=== PATIENT | female | born 1950 | race Caucasian/White ===

== ENCOUNTER 2017-11-08 07:38 | Emergency (ER) | payer MEDICARE, OTHER ==
[~2017-11-08] VITALS: Ht 154.9 cm; Wt 50.0 kg
[2017-11-08] MEDS ORDERED: aspirin 81mg tab.chew PO ONE (07:55)
[2017-11-08 07:56] LABS: BASOPHILS # (AUTO) 0.1 X10'3 (0-0.2); BASOPHILS % (AUTO) 0.3 % (0-1); EOSINOPHILS # (AUTO) 0.3 X10'3 (0-0.9); EOSINOPHILS % (AUTO) 1.4 % (0-6); HEMATOCRIT 46.5 % (35.0-45.0); HEMOGLOBIN 15.6 g/dl (12.0-16.0); LYMPHOCYTES # (AUTO) 1.2 X10'3 (1.1-4.8); LYMPHOCYTES % (AUTO) 5.7 % (21-51); MEAN CORPUSCULAR HEMOGLOBIN 29.7 PG (27.0-31.0); MEAN CORPUSCULAR HGB CONC 33.5 % (33.0-36.5); MEAN CORPUSCULAR VOLUME 88.8 FL (78-98); MONOCYTES # (AUTO) 0.8 X10'3 (0-0.9); MONOCYTES % (AUTO) 3.8 % (2-12); NEUTROPHILS # (AUTO) 18.2 X10'3 (1.8-7.7); NEUTROPHILS % (AUTO) 88.8 % (42-75); PLATELET COUNT 301 X10'3 (140-440); RED BLOOD COUNT 5.23 X10'6 (4.20-5.60); RED CELL DISTRIBUTION WIDTH 13.8 % (11.5-14.5); WHITE BLOOD COUNT 20.5 X10'3 (4.5-11.0)
[2017-11-08 08:20] LABS: CREATINE KINASE 44 U/L (26-192); LIPASE 100 U/L (73-393); MAGNESIUM 1.8 MG/DL (1.5-2.4)
[2017-11-08 08:50] LABS: GLUCOSE 170 MG/DL (70-104); POTASSIUM 4.4 MMOL/L (3.5-5.1); SODIUM 139 MMOL/L (135-145)
[2017-11-08 08:51] LABS: ALANINE AMINOTRANSFERASE 31 U/L (12-78); ALBUMIN 3.9 G/DL (3.4-5.0); ALBUMIN/GLOBULIN RATIO 0.8 (1.1-1.5); ALKALINE PHOSPHATASE 146 IU/L (46-116); ANION GAP 12 (8-16); ASPARTATE AMINO TRANSFERASE 25 U/L (10-37); BILIRUBIN,TOTAL 1.5 MG/DL (0.1-1.0); BLOOD UREA NITROGEN 23 MG/DL (7-18); CALCIUM 10.4 MG/DL (8.5-10.1); CHLORIDE 102 MMOL/L (99-107); CREATININE 1.35 MG/DL (0.40-0.90); TOTAL CARBON DIOXIDE 24.7 MMOL/L (24-32); TOTAL PROTEIN 8.9 G/DL (6.4-8.2); eGFR 39 ML/MIN
[2017-11-08] MEDS ORDERED: normal saline 1000ML IV soln IVB ONE ×2 (08:55→09:05)
[2017-11-08] MEDS ORDERED: guaiFENesin ER 600mg tablet PO ONE (09:05)
[2017-11-08] MEDS ORDERED: sodium bicarbonate (0.9mEq/ml) 44.6 mEq/50ml syringe IV ONE (09:10)
[2017-11-08] MEDS ORDERED: sodium bicarbonate (8.4%) 1 mEq/ml syringe IV ONE (09:30)
[2017-11-08 09:44] LABS: PROTHROMBIN TIME 10.2 SECONDS (9.0-12.0)
[2017-11-08 10:08] LABS: PARTIAL THROMBOPLASTIN TIME 29 SECONDS (22-32)
[2017-11-08] MEDS ORDERED: iohexol 350MG/ML 100ml bottle IV ONE (10:42)
[2017-11-08] MEDS ORDERED: morphine 4 MG/ML inj SYRINge IV ONE (13:15)
[2017-11-08] MEDS ORDERED: LIDOcaine Viscous 15ml cup PO ONE (13:25)
[2017-11-08] MEDS ORDERED: mag hydrox/Alum hydrox/simeth 30ml oral suspension PO ONE (13:25)
[2017-11-08] MEDS ORDERED: morphine 2 MG/ML inj. syringe IV ONE (14:00)
[2017-11-08] MEDS ORDERED: ketorolac tromethamine 15mg/ml inj. IV ONE (14:00)
[2017-11-08 14:12] LABS: CLARITY,URINE CLEAR (Clear); COLOR,URINE YELLOW (Yellow); GLUCOSE, URINE NEGATIVE (Neg); KETONES,URINE 15 mg/dl (Neg); LEUKOCYTE ESTERASE ,URINE NEGATIVE (Neg); NITRITES, URINE NEGATIVE (Neg); OCCULT BLOOD,URINE NEGATIVE (Neg); PH,URINE 7.5 (4.8-8.0); PROTEIN,URINE NEGATIVE (Neg); UA COLLECTION TYPE CLN CATCH MIDSTREAM; UROBILINOGEN,URINE 0.2 E.U/dL (0.2-1.0)
[2017-11-08] MEDS ORDERED: ACET1TAB25 PO (14:46)
[2017-11-08] MEDS ORDERED: NAPR-56 PO (14:46)
[2017-11-08 15:00] VITALS: BP 83/61
== END 2017-11-08 15:01 | disposition home or self-care (01) ==
LOC: ER 07:38
DX: J90 Pleural effusion, not elsewhere classified (principal); D72.829 Elevated white blood cell count, unspecified; Z85.01 Personal history of malignant neoplasm of esophagus; Z79.899 Other long term (current) drug therapy
CPT/HCPCS: 36415; 71045; 71275; 80053; 81003; 82550; 83690; 83735; 83874; 83880; 84484; 85025; 85610; 85730; 93005; 96361; 96374; 96375; 99285; J1885; J7030; Q9967

== ENCOUNTER 2017-11-22 15:36 | Inpatient (IN) | payer MEDICARE, OTHER ==
[~2017-11-22] VITALS: Ht 5116.1 cm; Wt 84.5 kg
[~2017-11-22 15:36] MED LIST: NAPR-56 PO
[2017-11-22 16:24] LABS: BASOPHILS % (AUTO) 0.3 % (0-1); EOSINOPHILS # (AUTO) 0.2 X10'3 (0-0.9); EOSINOPHILS % (AUTO) 1.2 % (0-6); HEMATOCRIT 41.2 % (35.0-45.0); HEMOGLOBIN 13.7 g/dl (12.0-16.0); MEAN CORPUSCULAR HEMOGLOBIN 29.1 PG (27.0-31.0); MEAN CORPUSCULAR HGB CONC 33.2 % (33.0-36.5); MEAN CORPUSCULAR VOLUME 87.6 FL (78-98); MEAN PLATELET VOLUME 8.5 FL (7.4-10.4); MONOCYTES # (AUTO) 0.8 X10'3 (0-0.9); MONOCYTES % (AUTO) 4.9 % (2-12); NEUTROPHILS # (AUTO) 15.2 X10'3 (1.8-7.7); NEUTROPHILS % (AUTO) 87.6 % (42-75); PLATELET COUNT 401 X10'3 (140-440); RED CELL DISTRIBUTION WIDTH 14.2 % (11.5-14.5); WHITE BLOOD COUNT 17.4 X10'3 (4.5-11.0)
[2017-11-22] MEDS ORDERED: adenosine 3mg/ml 2ml vial IV ONE (16:35)
[2017-11-22 16:45] LABS: ALANINE AMINOTRANSFERASE 36 U/L (12-78); ALBUMIN 3.2 G/DL (3.4-5.0); ALBUMIN/GLOBULIN RATIO 0.7 (1.1-1.5); ALKALINE PHOSPHATASE 127 IU/L (46-116); ANION GAP 15 (8-16); ASPARTATE AMINO TRANSFERASE 25 U/L (10-37); BILIRUBIN,TOTAL 0.7 MG/DL (0.1-1.0); BLOOD UREA NITROGEN 27 MG/DL (7-18); BUN/CREATININE RATIO 19.4 (6.6-38.0); CALCIUM 9.4 MG/DL (8.5-10.1); CHLORIDE 103 MMOL/L (99-107); CREATININE 1.39 MG/DL (0.40-0.90); GLUCOSE 154 MG/DL (70-104); POTASSIUM 4.3 MMOL/L (3.5-5.1); SODIUM 140 MMOL/L (135-145); TOTAL CARBON DIOXIDE 21.6 MMOL/L (24-32); TOTAL PROTEIN 7.8 G/DL (6.4-8.2); eGFR 38 ML/MIN
[2017-11-22 16:46] LABS: PARTIAL THROMBOPLASTIN TIME 28 SECONDS (22-32); PROTHROMBIN TIME 10.5 SECONDS (9.0-12.0)
[2017-11-22] MEDS ORDERED: diltiazem-D5W 125mg/125ml 125 ML IV ONE (16:47)
[2017-11-22] MEDS ORDERED: verapamil 2.5 mg/ml inj IV ONE (16:50)
[2017-11-22] MEDS ORDERED: metoprolol tartrate 1mg/ml inj IV ONE (17:40)
[2017-11-22] MEDS ORDERED: normal saline 1000ML IV soln IVB ONE (17:40)
[2017-11-22] MEDS ORDERED: mag hydrox/Alum hydrox/simeth 30ml oral suspension PO PRN (18:30)
[2017-11-22] MEDS ORDERED: acetaminophen 325mg tablet PO PRN (18:30)
[2017-11-22] MEDS ORDERED: magnesium hydroxide 30ml (MOM) UD suspension PO PRN (18:30)
[2017-11-22] MEDS ORDERED: ondansetron/PF 4mg/2ml inj IV PRN (18:30)
[2017-11-22] MEDS ORDERED: digoxin 250mcg/ml 2ml ampule IV ONE (18:35)
[2017-11-22 19:16] LABS: HEMOGLOBIN A1C 5.8 % (4.5-6.2)
[2017-11-22] MEDS: normal saline 1000ml 1,000 ML IV SCH (20:29)
[2017-11-22] MEDS: heparin, porcine 5000 units/ml vial SQ SCH (20:30)
[2017-11-23 04:23] LABS: BASOPHILS % (AUTO) 0.2 % (0-1); EOSINOPHILS # (AUTO) 0.1 X10'3 (0-0.9); EOSINOPHILS % (AUTO) 0.9 % (0-6); HEMATOCRIT 35.5 % (35.0-45.0); HEMOGLOBIN 11.6 g/dl (12.0-16.0); LYMPHOCYTES % (AUTO) 8.7 % (21-51); MEAN CORPUSCULAR HEMOGLOBIN 28.7 PG (27.0-31.0); MEAN CORPUSCULAR HGB CONC 32.8 % (33.0-36.5); MEAN CORPUSCULAR VOLUME 87.6 FL (78-98); MEAN PLATELET VOLUME 8.1 FL (7.4-10.4); MONOCYTES # (AUTO) 0.7 X10'3 (0-0.9); MONOCYTES % (AUTO) 6.3 % (2-12); NEUTROPHILS # (AUTO) 9.4 X10'3 (1.8-7.7); NEUTROPHILS % (AUTO) 83.9 % (42-75); PLATELET COUNT 286 X10'3 (140-440); RED BLOOD COUNT 4.06 X10'6 (4.20-5.60); RED CELL DISTRIBUTION WIDTH 14.4 % (11.5-14.5); WHITE BLOOD COUNT 11.2 X10'3 (4.5-11.0)
[2017-11-23 04:41] LABS: ALANINE AMINOTRANSFERASE 42 U/L (12-78); ALBUMIN 2.5 G/DL (3.4-5.0); ALBUMIN/GLOBULIN RATIO 0.7 (1.1-1.5); ALKALINE PHOSPHATASE 126 IU/L (46-116); ANION GAP 12 (8-16); ASPARTATE AMINO TRANSFERASE 35 U/L (10-37); BILIRUBIN,TOTAL 0.7 MG/DL (0.1-1.0); BLOOD UREA NITROGEN 24 MG/DL (7-18); BUN/CREATININE RATIO 21.2 (6.6-38.0); CALCIUM 8.5 MG/DL (8.5-10.1); CHLORIDE 109 MMOL/L (99-107); CREATININE 1.13 MG/DL (0.40-0.90); GLUCOSE 105 MG/DL (70-104); POTASSIUM 4.1 MMOL/L (3.5-5.1); SODIUM 144 MMOL/L (135-145); TOTAL CARBON DIOXIDE 22.7 MMOL/L (24-32); TOTAL PROTEIN 6.3 G/DL (6.4-8.2); eGFR 48 ML/MIN
[2017-11-23 04:49] LABS: GIANT PLATELET FEW; LARGE PLATELETS FEW; PLATELET ESTIMATE NORMAL
[2017-11-23] MEDS: normal saline 1000ml 1,000 ML IV SCH ×2 (05:04→18:07)
[2017-11-23] MEDS: heparin, porcine 5000 units/ml vial SQ SCH ×2 (08:54→21:25)
[2017-11-23] MEDS ORDERED: OMEP-50 (10:36)
[2017-11-23] MEDS ORDERED: LOVA40TA2 (10:36)
[2017-11-23] MEDS ORDERED: INFLUENZA VACCINE IMVAC ONE (10:45)
[2017-11-23] MEDS ORDERED: albuterol 2.5 MG/3 ML nebule NEB PRN (11:55)
[2017-11-23 12:46] LABS: ABG BASE EXCESS -2.2 mmol/L (-2.0-3.0); ABG HCO3 19.7 mmol/L (22.0-26.0); ABG OXYGEN SATURATION 88.3 % (95-98); ABG PCO2 (T) 26.4 mmHg (32.0-45.0); ABG PH (T) 7.491 (7.350-7.450); ABG PO2 (T) 53.1 mmHg (83-108); ALLEN'S TEST Positive; FCOHb 0.9 % (0.5-1.5); FMetHb 0.3 % (0.3-1.12); FO2Hb 87.2 % (94-100); TOTAL HEMOGLOBIN 12.7 G/dl (12.0-16.0)
[2017-11-23] MEDS ORDERED: FLU VACC QS2017-18 36MOS UP/PF 60 MCG/0.5 ML SYRINGE IMVAC ONE (12:55)
[2017-11-23] MEDS: carVEDilol 3.125mg tablet PO SCH ×2 (13:20→20:00)
[2017-11-23] MEDS ORDERED: methylPREDNISolone sod succ 125mg/2ml vial IV ONE (18:05)
[2017-11-24] VITALS (7 sets, daily range): BP systolic 97–126; BP diastolic 53–72
[2017-11-24] MEDS: normal saline 1000ml 1,000 ML IV SCH ×3 (03:44→23:30)
[2017-11-24 06:40] LABS: BASOPHILS % (AUTO) 0 % (0-1); EOSINOPHILS % (AUTO) 0 % (0-6); HEMATOCRIT 40.5 % (35.0-45.0); HEMOGLOBIN 13.6 g/dl (12.0-16.0); LYMPHOCYTES # (AUTO) 0.6 X10'3 (1.1-4.8); LYMPHOCYTES % (AUTO) 4.6 % (21-51); MEAN CORPUSCULAR HEMOGLOBIN 29.7 PG (27.0-31.0); MEAN CORPUSCULAR HGB CONC 33.6 % (33.0-36.5); MEAN CORPUSCULAR VOLUME 88.5 FL (78-98); MEAN PLATELET VOLUME 8.6 FL (7.4-10.4); MONOCYTES # (AUTO) 0.2 X10'3 (0-0.9); MONOCYTES % (AUTO) 1.7 % (2-12); NEUTROPHILS % (AUTO) 93.7 % (42-75); PLATELET COUNT 334 X10'3 (140-440); RED BLOOD COUNT 4.57 X10'6 (4.20-5.60); RED CELL DISTRIBUTION WIDTH 14.4 % (11.5-14.5); WHITE BLOOD COUNT 12.8 X10'3 (4.5-11.0)
[2017-11-24 07:03] LABS: ALANINE AMINOTRANSFERASE 46 U/L (12-78); ALBUMIN 2.9 G/DL (3.4-5.0); ALBUMIN/GLOBULIN RATIO 0.6 (1.1-1.5); ALKALINE PHOSPHATASE 136 IU/L (46-116); ANION GAP 14 (8-16); ASPARTATE AMINO TRANSFERASE 32 U/L (10-37); BILIRUBIN,TOTAL 0.5 MG/DL (0.1-1.0); BLOOD UREA NITROGEN 19 MG/DL (7-18); BUN/CREATININE RATIO 17.1 (6.6-38.0); CALCIUM 9.1 MG/DL (8.5-10.1); CHLORIDE 107 MMOL/L (99-107); CREATININE 1.11 MG/DL (0.40-0.90); GLUCOSE 158 MG/DL (70-104); POTASSIUM 4.4 MMOL/L (3.5-5.1); SODIUM 141 MMOL/L (135-145); TOTAL CARBON DIOXIDE 20.3 MMOL/L (24-32); TOTAL PROTEIN 7.8 G/DL (6.4-8.2); eGFR 49 ML/MIN
[2017-11-24] MEDS: apixaban 5mg tablet PO SCH ×2 (07:34→19:38)
[2017-11-24] MEDS: carVEDilol 3.125mg tablet PO SCH ×2 (07:34→19:38)
[2017-11-24] MEDS: methylPREDNISolone sod succ 125mg/2ml vial IV SCH (07:35)
[2017-11-24] MEDS ORDERED: levoFLOXACIN-Levaquin 750MG/D5 150 ML IV STA (19:03)
[2017-11-24] MEDS: albuterol 2.5 MG/3 ML nebule NEB PRN (22:22)
[2017-11-24] MEDS: LORazepam 2 mg/ml vial IV PRN (22:45)
[2017-11-24 23:21] LABS: ABG BASE EXCESS -3.4 mmol/L (-2.0-3.0); ABG HCO3 19.6 mmol/L (22.0-26.0); ABG OXYGEN SATURATION 84.6 % (95-98); ABG PCO2 (T) 29.2 mmHg (32.0-45.0); ABG PH (T) 7.444 (7.350-7.450); ABG PO2 (T) 49.9 mmHg (83-108); ALLEN'S TEST Positive; FCOHb 0.6 % (0.5-1.5); FLOW 15 L/min; FMetHb 0.3 % (0.3-1.12); FO2Hb 83.8 % (94-100); PATIENT TEMPERATURE 36.8; RESPIRATORY RATE (OBSERVED) 20 b/min; TOTAL HEMOGLOBIN 12.8 G/dl (12.0-16.0)
[2017-11-25] VITALS (8 sets, daily range): BP systolic 82–142; BP diastolic 48–107
[2017-11-25] MEDS: normal saline 1000ml 1,000 ML IV SCH (01:52)
[2017-11-25] MEDS: albuterol 2.5 MG/3 ML nebule NEB PRN (05:20)
[2017-11-25 06:30] LABS: BASOPHILS % (AUTO) 0.1 % (0-1); EOSINOPHILS % (AUTO) 0 % (0-6); HEMATOCRIT 42.8 % (35.0-45.0); HEMOGLOBIN 14.3 g/dl (12.0-16.0); LYMPHOCYTES # (AUTO) 0.8 X10'3 (1.1-4.8); LYMPHOCYTES % (AUTO) 3.2 % (21-51); MEAN CORPUSCULAR HEMOGLOBIN 29.3 PG (27.0-31.0); MEAN CORPUSCULAR HGB CONC 33.4 % (33.0-36.5); MEAN CORPUSCULAR VOLUME 87.9 FL (78-98); MEAN PLATELET VOLUME 8.6 FL (7.4-10.4); MONOCYTES # (AUTO) 0.8 X10'3 (0-0.9); MONOCYTES % (AUTO) 3.4 % (2-12); NEUTROPHILS # (AUTO) 22.7 X10'3 (1.8-7.7); NEUTROPHILS % (AUTO) 93.3 % (42-75); PLATELET COUNT 418 X10'3 (140-440); RED BLOOD COUNT 4.86 X10'6 (4.20-5.60); RED CELL DISTRIBUTION WIDTH 14.3 % (11.5-14.5); WHITE BLOOD COUNT 24.4 X10'3 (4.5-11.0)
[2017-11-25 06:46] LABS: ALANINE AMINOTRANSFERASE 35 U/L (12-78); ALBUMIN 2.9 G/DL (3.4-5.0); ALBUMIN/GLOBULIN RATIO 0.6 (1.1-1.5); ALKALINE PHOSPHATASE 129 IU/L (46-116); ANION GAP 11 (8-16); ASPARTATE AMINO TRANSFERASE 22 U/L (10-37); BILIRUBIN,TOTAL 0.5 MG/DL (0.1-1.0); BLOOD UREA NITROGEN 19 MG/DL (7-18); BUN/CREATININE RATIO 18.1 (6.6-38.0); CALCIUM 9.1 MG/DL (8.5-10.1); CHLORIDE 107 MMOL/L (99-107); CREATININE 1.05 MG/DL (0.40-0.90); GLUCOSE 119 MG/DL (70-104); POTASSIUM 4.5 MMOL/L (3.5-5.1); SODIUM 141 MMOL/L (135-145); TOTAL CARBON DIOXIDE 22.8 MMOL/L (24-32); eGFR 52 ML/MIN
[2017-11-25] MEDS: methylPREDNISolone sod succ 125mg/2ml vial IV SCH ×3 (07:15→20:04)
[2017-11-25] MEDS: LORazepam 2 mg/ml vial IV PRN (07:15)
[2017-11-25] MEDS: apixaban 5mg tablet PO SCH ×2 (07:20→20:03)
[2017-11-25] MEDS: carVEDilol 3.125mg tablet PO SCH ×2 (07:20→20:00)
[2017-11-25] MEDS ORDERED: ipratropium/albuterol 3ml nebule NEB PRN (08:15)
[2017-11-25 08:21] LABS: ABG BASE EXCESS -3.5 mmol/L (-2.0-3.0); ABG HCO3 19.5 mmol/L (22.0-26.0); ABG OXYGEN SATURATION 87.9 % (95-98); ABG PCO2 (T) 29.7 mmHg (32.0-45.0); ABG PH (T) 7.436 (7.350-7.450); ABG PO2 (T) 55.3 mmHg (83-108); ALLEN'S TEST Positive; FCOHb 0.1 % (0.5-1.5); FLOW 40 L/min; FMetHb 0.3 % (0.3-1.12); FO2Hb 87.5 % (94-100)
[2017-11-25] MEDS ORDERED: furosemide 40mg/4ml inj IV ONE (09:30)
[2017-11-25 12:22] LABS: GLUCOSE,BODY FLUID 130 MG/DL
[2017-11-25] MEDS: furosemide 40mg/4ml inj IV SCH (16:00)
[2017-11-25] MEDS: lactobacillus rhamnosus 10,000 MMU CELLS/CAPSULE PO SCH (20:03)
[2017-11-26] VITALS (21 sets, daily range): BP systolic 84–116; BP diastolic 47–64
[2017-11-26] MEDS: methylPREDNISolone sod succ 125mg/2ml vial IV SCH ×4 (04:10→20:14)
[2017-11-26 05:26] LABS: BASOPHILS % (AUTO) 0 % (0-1); EOSINOPHILS # (AUTO) 0.1 X10'3 (0-0.9); EOSINOPHILS % (AUTO) 0.8 % (0-6); HEMOGLOBIN 13.2 g/dl (12.0-16.0); LYMPHOCYTES # (AUTO) 0.5 X10'3 (1.1-4.8); LYMPHOCYTES % (AUTO) 2.7 % (21-51); MEAN CORPUSCULAR HEMOGLOBIN 29.4 PG (27.0-31.0); MEAN CORPUSCULAR HGB CONC 33.7 % (33.0-36.5); MEAN CORPUSCULAR VOLUME 87.2 FL (78-98); MEAN PLATELET VOLUME 8.6 FL (7.4-10.4); MONOCYTES # (AUTO) 0.5 X10'3 (0-0.9); MONOCYTES % (AUTO) 2.6 % (2-12); NEUTROPHILS # (AUTO) 16.3 X10'3 (1.8-7.7); NEUTROPHILS % (AUTO) 93.9 % (42-75); PLATELET COUNT 372 X10'3 (140-440); RED BLOOD COUNT 4.48 X10'6 (4.20-5.60); RED CELL DISTRIBUTION WIDTH 14.6 % (11.5-14.5); WHITE BLOOD COUNT 17.4 X10'3 (4.5-11.0)
[2017-11-26 05:58] LABS: ALANINE AMINOTRANSFERASE 28 U/L (12-78); ALBUMIN 2.5 G/DL (3.4-5.0); ALBUMIN/GLOBULIN RATIO 0.6 (1.1-1.5); ALKALINE PHOSPHATASE 104 IU/L (46-116); ANION GAP 11 (8-16); ASPARTATE AMINO TRANSFERASE 21 U/L (10-37); BILIRUBIN,TOTAL 0.6 MG/DL (0.1-1.0); BLOOD UREA NITROGEN 31 MG/DL (7-18); BUN/CREATININE RATIO 28.4 (6.6-38.0); CALCIUM 8.9 MG/DL (8.5-10.1); CHLORIDE 104 MMOL/L (99-107); CREATININE 1.09 MG/DL (0.40-0.90); GLUCOSE 160 MG/DL (70-104); PHOSPHORUS 4.5 MG/DL (2.3-4.5); POTASSIUM 3.8 MMOL/L (3.5-5.1); SODIUM 139 MMOL/L (135-145); TOTAL CARBON DIOXIDE 23.9 MMOL/L (24-32); eGFR 50 ML/MIN
[2017-11-26] MEDS: carVEDilol 3.125mg tablet PO SCH ×2 (08:00→19:22)
[2017-11-26] MEDS: lactobacillus rhamnosus 10,000 MMU CELLS/CAPSULE PO SCH ×2 (08:18→20:15)
[2017-11-26] MEDS: apixaban 5mg tablet PO SCH ×2 (08:18→20:15)
[2017-11-26] MEDS: atorvastatin 20mg tablet PO SCH (08:18)
[2017-11-26] MEDS: furosemide 40mg/4ml inj IV SCH ×3 (08:18→16:00)
[2017-11-26] MEDS: levoFLOXACIN-Levaquin 750MG/D5 150 ML IV SCH (08:37)
[2017-11-26] MEDS: benzocaine/menthol oral lozeng 1 EACH BOX MM PRN (16:10)
[2017-11-26] MEDS: diatr meglu/diatrizoate 30ml oral sol.-(3 dose) bottle PO SCH (21:00)
[2017-11-27] VITALS (7 sets, daily range): BP systolic 86–118; BP diastolic 45–65
[2017-11-27] MEDS: methylPREDNISolone sod succ 125mg/2ml vial IV SCH ×4 (03:33→20:33)
[2017-11-27 06:03] LABS: BASOPHILS % (AUTO) 0 % (0-1); EOSINOPHILS % (AUTO) 0 % (0-6); HEMATOCRIT 37.9 % (35.0-45.0); HEMOGLOBIN 12.6 g/dl (12.0-16.0); LYMPHOCYTES # (AUTO) 0.4 X10'3 (1.1-4.8); LYMPHOCYTES % (AUTO) 2.2 % (21-51); MEAN CORPUSCULAR HEMOGLOBIN 29.4 PG (27.0-31.0); MEAN CORPUSCULAR HGB CONC 33.3 % (33.0-36.5); MEAN CORPUSCULAR VOLUME 88.3 FL (78-98); MEAN PLATELET VOLUME 8.5 FL (7.4-10.4); MONOCYTES # (AUTO) 0.5 X10'3 (0-0.9); MONOCYTES % (AUTO) 2.6 % (2-12); NEUTROPHILS % (AUTO) 95.2 % (42-75); PLATELET COUNT 358 X10'3 (140-440); RED BLOOD COUNT 4.29 X10'6 (4.20-5.60); RED CELL DISTRIBUTION WIDTH 14.6 % (11.5-14.5); WHITE BLOOD COUNT 17.9 X10'3 (4.5-11.0)
[2017-11-27 06:24] LABS: ALANINE AMINOTRANSFERASE 32 U/L (12-78); ALBUMIN 2.4 G/DL (3.4-5.0); ALBUMIN/GLOBULIN RATIO 0.5 (1.1-1.5); ALKALINE PHOSPHATASE 99 IU/L (46-116); ANION GAP 11 (8-16); ASPARTATE AMINO TRANSFERASE 27 U/L (10-37); BILIRUBIN,TOTAL 0.8 MG/DL (0.1-1.0); BLOOD UREA NITROGEN 42 MG/DL (7-18); BUN/CREATININE RATIO 37.5 (6.6-38.0); CALCIUM 8.9 MG/DL (8.5-10.1); CHLORIDE 101 MMOL/L (99-107); CREATININE 1.12 MG/DL (0.40-0.90); GLUCOSE 157 MG/DL (70-104); MAGNESIUM 2.5 MG/DL (1.5-2.4); POTASSIUM 3.9 MMOL/L (3.5-5.1); SODIUM 140 MMOL/L (135-145); TOTAL CARBON DIOXIDE 28.4 MMOL/L (24-32); TOTAL PROTEIN 6.8 G/DL (6.4-8.2); eGFR 49 ML/MIN
[2017-11-27] MEDS: diatr meglu/diatrizoate 30ml oral sol.-(3 dose) bottle PO SCH ×2 (07:05→19:41)
[2017-11-27] MEDS: carVEDilol 3.125mg tablet PO SCH ×2 (08:00→19:41)
[2017-11-27] MEDS: furosemide 40mg/4ml inj IV SCH ×2 (08:00)
[2017-11-27] MEDS: atorvastatin 20mg tablet PO SCH (08:09)
[2017-11-27] MEDS: apixaban 5mg tablet PO SCH ×2 (08:09→20:33)
[2017-11-27] MEDS: lactobacillus rhamnosus 10,000 MMU CELLS/CAPSULE PO SCH ×2 (08:10→20:33)
[2017-11-27] MEDS ORDERED: iohexol 300mg/ml 100ml inj. ONE (08:56)
[2017-11-27] MEDS: furosemide 20 MG/2 ML vial IV SCH (15:48)
[2017-11-28] VITALS (7 sets, daily range): BP systolic 82–100; BP diastolic 42–57
[2017-11-28] MEDS: furosemide 20 MG/2 ML vial IV SCH ×3 (00:38→16:12)
[2017-11-28] MEDS: methylPREDNISolone sod succ 125mg/2ml vial IV SCH ×4 (02:59→20:04)
[2017-11-28 05:42] LABS: MAGNESIUM 2.5 MG/DL (1.5-2.4); PHOSPHORUS 4.5 MG/DL (2.3-4.5)
[2017-11-28] MEDS: carVEDilol 3.125mg tablet PO SCH ×2 (08:00→20:00)
[2017-11-28] MEDS: atorvastatin 20mg tablet PO SCH (08:12)
[2017-11-28] MEDS: apixaban 5mg tablet PO SCH ×2 (08:12→20:03)
[2017-11-28] MEDS: lactobacillus rhamnosus 10,000 MMU CELLS/CAPSULE PO SCH ×2 (08:12→20:03)
[2017-11-28] MEDS: levoFLOXACIN-Levaquin 750MG/D5 150 ML IV SCH (09:04)
[2017-11-28] MEDS: guaiFENesin ER 600mg tablet PO SCH (20:03)
[2017-11-29] VITALS (7 sets, daily range): BP systolic 90–104; BP diastolic 47–58
[2017-11-29] MEDS: furosemide 20 MG/2 ML vial IV SCH ×4 (00:31→23:47)
[2017-11-29] MEDS: methylPREDNISolone sod succ 125mg/2ml vial IV SCH ×2 (02:27→09:09)
[2017-11-29 06:19] LABS: MAGNESIUM 2.4 MG/DL (1.5-2.4); PHOSPHORUS 4.2 MG/DL (2.3-4.5)
[2017-11-29] MEDS: atorvastatin 20mg tablet PO SCH (09:10)
[2017-11-29] MEDS: carVEDilol 3.125mg tablet PO SCH ×2 (09:10→20:22)
[2017-11-29] MEDS: lactobacillus rhamnosus 10,000 MMU CELLS/CAPSULE PO SCH ×2 (09:10→20:24)
[2017-11-29] MEDS: guaiFENesin ER 600mg tablet PO SCH ×2 (09:10→20:24)
[2017-11-29] MEDS: apixaban 5mg tablet PO SCH ×2 (09:10→20:22)
[2017-11-29] MEDS: methylPREDNISolone sod succ/PF 40mg inj. IV SCH ×2 (14:01→20:21)
[2017-11-29] MEDS: benzocaine/menthol oral lozeng 1 EACH BOX MM PRN ×2 (15:48→20:24)
[2017-11-30] VITALS (7 sets, daily range): BP systolic 81–98; BP diastolic 48–84
[2017-11-30] MEDS: methylPREDNISolone sod succ/PF 40mg inj. IV SCH ×4 (01:04→20:25)
[2017-11-30 06:04] LABS: MAGNESIUM 2.4 MG/DL (1.5-2.4); PHOSPHORUS 4.3 MG/DL (2.3-4.5)
[2017-11-30] MEDS: levoFLOXACIN-Levaquin 750MG/D5 150 ML IV SCH (08:00)
[2017-11-30] MEDS: carVEDilol 3.125mg tablet PO SCH ×2 (08:00→20:00)
[2017-11-30] MEDS: furosemide 20 MG/2 ML vial IV SCH ×2 (08:00→15:06)
[2017-11-30] MEDS: lactobacillus rhamnosus 10,000 MMU CELLS/CAPSULE PO SCH ×2 (08:26→20:26)
[2017-11-30] MEDS: atorvastatin 20mg tablet PO SCH (08:26)
[2017-11-30] MEDS: guaiFENesin ER 600mg tablet PO SCH ×2 (08:27→20:26)
[2017-11-30] MEDS: apixaban 5mg tablet PO SCH ×2 (08:27→20:28)
[2017-11-30 10:22] LABS: BASOPHILS % (AUTO) 0 % (0-1); EOSINOPHILS % (AUTO) 0 % (0-6); HEMATOCRIT 39.1 % (35.0-45.0); HEMOGLOBIN 13.2 g/dl (12.0-16.0); LYMPHOCYTES # (AUTO) 0.3 X10'3 (1.1-4.8); LYMPHOCYTES % (AUTO) 2.1 % (21-51); MEAN CORPUSCULAR HEMOGLOBIN 29.2 PG (27.0-31.0); MEAN CORPUSCULAR HGB CONC 33.8 % (33.0-36.5); MEAN CORPUSCULAR VOLUME 86.3 FL (78-98); MEAN PLATELET VOLUME 8.3 FL (7.4-10.4); MONOCYTES # (AUTO) 0.7 X10'3 (0-0.9); MONOCYTES % (AUTO) 4.4 % (2-12); NEUTROPHILS # (AUTO) 14.5 X10'3 (1.8-7.7); NEUTROPHILS % (AUTO) 93.5 % (42-75); PLATELET COUNT 313 X10'3 (140-440); RED BLOOD COUNT 4.53 X10'6 (4.20-5.60); RED CELL DISTRIBUTION WIDTH 14.5 % (11.5-14.5); WHITE BLOOD COUNT 15.6 X10'3 (4.5-11.0)
[2017-11-30 10:34] LABS: ALBUMIN 2.5 G/DL (3.4-5.0); ANION GAP 10 (8-16); BLOOD UREA NITROGEN 46 MG/DL (7-18); BUN/CREATININE RATIO 38.3 (6.6-38.0); CALCIUM 8.2 MG/DL (8.5-10.1); CHLORIDE 93 MMOL/L (99-107); GLUCOSE 206 MG/DL (70-104); POTASSIUM 3.2 MMOL/L (3.5-5.1); SODIUM 135 MMOL/L (135-145); TOTAL CARBON DIOXIDE 32.3 MMOL/L (24-32); eGFR 45 ML/MIN
[2017-11-30] MEDS: Protein Smoothie (high protein) 240ml (8oz) cup PO SCH ×2 (13:00→18:00)
[2017-11-30] MEDS ORDERED: potassium Cl 40MEQ/NS 500ml 500 ML IV PRN ×2 (13:20)
[2017-11-30] MEDS ORDERED: magnesium Cl slow-release 64mg tablet PO PRN (13:20)
[2017-11-30] MEDS ORDERED: potassium Cl 20 mEq SR tablet PO PRN (13:20)
[2017-11-30] MEDS: potassium Cl 20 mEq SR tablet PO PRN ×2 (13:32→17:57)
[2017-11-30] MEDS: benzocaine/menthol oral lozeng 1 EACH BOX MM PRN ×2 (15:08→20:24)
[2017-12-01] MEDS: methylPREDNISolone sod succ/PF 40mg inj. IV SCH ×4 (01:14→20:34)
[2017-12-01] MEDS: furosemide 20 MG/2 ML vial IV SCH ×3 (01:14→15:58)
[2017-12-01 03:00] VITALS: BP 98/54
[2017-12-01] MEDS: benzocaine/menthol oral lozeng 1 EACH BOX MM PRN ×2 (04:11→13:40)
[2017-12-01 06:00] VITALS: BP 90/55
[2017-12-01 07:27] LABS: BASOPHILS % (AUTO) 0 % (0-1); EOSINOPHILS % (AUTO) 0 % (0-6); HEMATOCRIT 39.2 % (35.0-45.0); HEMOGLOBIN 13.1 g/dl (12.0-16.0); LYMPHOCYTES # (AUTO) 0.3 X10'3 (1.1-4.8); MEAN CORPUSCULAR HEMOGLOBIN 28.9 PG (27.0-31.0); MEAN CORPUSCULAR HGB CONC 33.4 % (33.0-36.5); MEAN CORPUSCULAR VOLUME 86.6 FL (78-98); MEAN PLATELET VOLUME 8.4 FL (7.4-10.4); MONOCYTES # (AUTO) 0.4 X10'3 (0-0.9); MONOCYTES % (AUTO) 2.9 % (2-12); NEUTROPHILS # (AUTO) 13.9 X10'3 (1.8-7.7); NEUTROPHILS % (AUTO) 95.1 % (42-75); PLATELET COUNT 297 X10'3 (140-440); RED BLOOD COUNT 4.53 X10'6 (4.20-5.60); RED CELL DISTRIBUTION WIDTH 13.9 % (11.5-14.5); WHITE BLOOD COUNT 14.6 X10'3 (4.5-11.0)
[2017-12-01 07:48] LABS: ALBUMIN 2.5 G/DL (3.4-5.0); ANION GAP 10 (8-16); BLOOD UREA NITROGEN 42 MG/DL (7-18); BUN/CREATININE RATIO 33.3 (6.6-38.0); CALCIUM 8.5 MG/DL (8.5-10.1); CHLORIDE 95 MMOL/L (99-107); CREATININE 1.26 MG/DL (0.40-0.90); GLUCOSE 186 MG/DL (70-104); MAGNESIUM 2.2 MG/DL (1.5-2.4); PHOSPHORUS 3.1 MG/DL (2.3-4.5); POTASSIUM 3.8 MMOL/L (3.5-5.1); SODIUM 134 MMOL/L (135-145); eGFR 42 ML/MIN
[2017-12-01] MEDS: lactobacillus rhamnosus 10,000 MMU CELLS/CAPSULE PO SCH ×2 (08:52→20:29)
[2017-12-01] MEDS: atorvastatin 20mg tablet PO SCH (08:52)
[2017-12-01] MEDS: guaiFENesin ER 600mg tablet PO SCH ×2 (08:52→20:30)
[2017-12-01] MEDS: carVEDilol 3.125mg tablet PO SCH ×2 (08:53→20:34)
[2017-12-01] MEDS: apixaban 5mg tablet PO SCH ×2 (08:53→20:30)
[2017-12-01] MEDS: Protein Smoothie (high protein) 240ml (8oz) cup PO SCH ×3 (08:57→18:05)
[2017-12-01 11:00] VITALS: BP 93/55
[2017-12-01 15:00] VITALS: BP 100/53
[2017-12-01 19:00] VITALS: BP 101/64
[2017-12-01 23:00] VITALS: BP 101/64
[2017-12-02] MEDS: furosemide 20 MG/2 ML vial IV SCH ×3 (00:42→16:00)
[2017-12-02] MEDS: methylPREDNISolone sod succ/PF 40mg inj. IV SCH ×4 (02:40→20:06)
[2017-12-02 03:00] VITALS: BP 102/58
[2017-12-02 06:35] VITALS: BP 89/54
[2017-12-02 06:57] LABS: MAGNESIUM 2.3 MG/DL (1.5-2.4); PHOSPHORUS 3.8 MG/DL (2.3-4.5); POTASSIUM 3.9 MMOL/L (3.5-5.1)
[2017-12-02] MEDS: levoFLOXACIN-Levaquin 750MG/D5 150 ML IV SCH (08:00)
[2017-12-02] MEDS: Protein Smoothie (high protein) 240ml (8oz) cup PO SCH ×3 (08:00→18:00)
[2017-12-02] MEDS: carVEDilol 3.125mg tablet PO SCH ×2 (08:00→19:54)
[2017-12-02] MEDS: atorvastatin 20mg tablet PO SCH (08:21)
[2017-12-02] MEDS: apixaban 5mg tablet PO SCH ×2 (08:21→20:06)
[2017-12-02] MEDS: lactobacillus rhamnosus 10,000 MMU CELLS/CAPSULE PO SCH ×2 (08:22→20:06)
[2017-12-02] MEDS: guaiFENesin ER 600mg tablet PO SCH ×2 (08:22→20:06)
[2017-12-02] MEDS: benzocaine/menthol oral lozeng 1 EACH BOX MM PRN (08:23)
[2017-12-02 11:00] VITALS: BP 95/56
[2017-12-02 15:00] VITALS: BP 98/56
[2017-12-02 19:00] VITALS: BP 82/43
[2017-12-02 23:00] VITALS: BP 89/56
[2017-12-03] MEDS: methylPREDNISolone sod succ/PF 40mg inj. IV SCH ×2 (02:21→08:47)
[2017-12-03 03:00] VITALS: BP 97/57
[2017-12-03] MEDS: benzocaine/menthol oral lozeng 1 EACH BOX MM PRN ×2 (05:26→08:56)
[2017-12-03 06:00] VITALS: BP 82/49
[2017-12-03 06:46] LABS: BASOPHILS % (AUTO) 0.2 % (0-1); EOSINOPHILS # (AUTO) 0.2 X10'3 (0-0.9); HEMATOCRIT 40.5 % (35.0-45.0); HEMOGLOBIN 13.7 g/dl (12.0-16.0); LYMPHOCYTES # (AUTO) 0.4 X10'3 (1.1-4.8); LYMPHOCYTES % (AUTO) 2.6 % (21-51); MEAN CORPUSCULAR HEMOGLOBIN 29.2 PG (27.0-31.0); MEAN CORPUSCULAR HGB CONC 33.9 % (33.0-36.5); MEAN CORPUSCULAR VOLUME 86.2 FL (78-98); MEAN PLATELET VOLUME 8.1 FL (7.4-10.4); MONOCYTES # (AUTO) 0.3 X10'3 (0-0.9); MONOCYTES % (AUTO) 1.7 % (2-12); NEUTROPHILS # (AUTO) 14.3 X10'3 (1.8-7.7); NEUTROPHILS % (AUTO) 94.5 % (42-75); PLATELET COUNT 304 X10'3 (140-440); RED BLOOD COUNT 4.69 X10'6 (4.20-5.60); RED CELL DISTRIBUTION WIDTH 13.7 % (11.5-14.5); WHITE BLOOD COUNT 15.1 X10'3 (4.5-11.0)
[2017-12-03 07:03] LABS: ALANINE AMINOTRANSFERASE 35 U/L (12-78); ALBUMIN 2.5 G/DL (3.4-5.0); ALBUMIN/GLOBULIN RATIO 0.6 (1.1-1.5); ALKALINE PHOSPHATASE 106 IU/L (46-116); ANION GAP 9 (8-16); ASPARTATE AMINO TRANSFERASE 21 U/L (10-37); BILIRUBIN,TOTAL 0.9 MG/DL (0.1-1.0); BLOOD UREA NITROGEN 42 MG/DL (7-18); BUN/CREATININE RATIO 35.6 (6.6-38.0); CALCIUM 8.6 MG/DL (8.5-10.1); CHLORIDE 96 MMOL/L (99-107); CREATININE 1.18 MG/DL (0.40-0.90); GLUCOSE 185 MG/DL (70-104); MAGNESIUM 2.5 MG/DL (1.5-2.4); PHOSPHORUS 3.7 MG/DL (2.3-4.5); POTASSIUM 4.2 MMOL/L (3.5-5.1); SODIUM 134 MMOL/L (135-145); TOTAL CARBON DIOXIDE 29.2 MMOL/L (24-32); TOTAL PROTEIN 6.7 G/DL (6.4-8.2); eGFR 46 ML/MIN
[2017-12-03] MEDS: carVEDilol 3.125mg tablet PO SCH (07:45)
[2017-12-03] MEDS: furosemide 20 MG/2 ML vial IV SCH ×2 (07:45)
[2017-12-03] MEDS ORDERED: LACTOSE-FREE FOOD 237ML (BOOST) PO SCH (08:00)
[2017-12-03] MEDS: Protein Smoothie (high protein) 240ml (8oz) cup PO SCH (08:00)
[2017-12-03] MEDS: guaiFENesin ER 600mg tablet PO SCH (08:47)
[2017-12-03] MEDS: atorvastatin 20mg tablet PO SCH (08:47)
[2017-12-03] MEDS: lactobacillus rhamnosus 10,000 MMU CELLS/CAPSULE PO SCH (08:47)
[2017-12-03] MEDS: apixaban 5mg tablet PO SCH (08:47)
[2017-12-03 11:00] VITALS: BP 90/57
[2017-12-03] MEDS ORDERED: PRED20TA PO (12:41)
[2017-12-03] MEDS ORDERED: APIX5TAB3 PO (12:41)
[2017-12-03] MEDS ORDERED: LEVO750T46 PO (12:41)
[2017-12-03] MEDS ORDERED: COR3.125T PO (12:41)
[2017-12-03] MEDS ORDERED: UMEC1DIS INH (12:41)
[2017-12-03] MEDS ORDERED: FURO-150 PO (12:41)
== END 2017-12-03 13:45 | disposition home or self-care (01) | DRG 291 ==
LOC: ER 15:36 → ED HOLD 18:27 → PCU 3S 11-24 00:20 → CICU 2S 11-25 11:42 → PCU 3S 11-26 15:00
PROVIDERS: ADMIT Internal Medicine; ATTEND Internal Medicine Critical Care Medicine
PROC: 5A2204Z Restoration of Cardiac Rhythm, Single (ICD-10-PCS; 2017-11-22)
PROC: 0W9B3ZX Drainage of Left Pleural Cavity, Percutaneous Approach, Diagnostic (ICD-10-PCS; 2017-11-25)
PROC: 0W993ZX Drainage of Right Pleural Cavity, Percutaneous Approach, Diagnostic (ICD-10-PCS; 2017-11-25)
PROC: BW251ZZ Computerized Tomography (CT Scan) of Chest, Abdomen and Pelvis using Low Osmolar Contrast (ICD-10-PCS; principal; 2017-11-27)
DX: I50.21 Acute systolic (congestive) heart failure (principal); J96.01 Acute respiratory failure with hypoxia; I47.1 Supraventricular tachycardia; J90 Pleural effusion, not elsewhere classified; J44.1 Chronic obstructive pulmonary disease with (acute) exacerbation; I48.91 Unspecified atrial fibrillation; Z79.01 Long term (current) use of anticoagulants; E87.6 Hypokalemia; K21.9 Gastro-esophageal reflux disease without esophagitis; E78.5 Hyperlipidemia, unspecified; E78.00 Pure hypercholesterolemia, unspecified; Z90.49 Acquired absence of other specified parts of digestive tract; Z88.1 Allergy status to other antibiotic agents; Z79.899 Other long term (current) drug therapy; Z87.891 Personal history of nicotine dependence; Z85.01 Personal history of malignant neoplasm of esophagus; Z87.892 Personal history of anaphylaxis; Z92.21 Personal history of antineoplastic chemotherapy; Z92.3 Personal history of irradiation; Z82.0 Family history of epilepsy and other diseases of the nervous system; Z82.49 Family history of ischemic heart disease and other diseases of the circulatory system
CPT/HCPCS: 32555; 36415; 36600; 71045; 71046; 71260; 74177; 80048; 80053; 80162; 82803; 82945; 83036; 83605; 83735; 83880; 84100; 84132; 84157; 84484; 85018; 85025; 85610; 85730; 87040; 87070; 92960; 93005; 93306; 94640; 94760; 96361; 96374; 96375; 97110; 97116; 97162; 97530; 99291; 99292; A4310; A4315; A4344; A4353; A6213; A6250; A6258; A9270; C1758; J1160; J1644; J1940; J1956; J2060; J2920; J2930; J3490; J7030; Q2037; Q9963; Q9967

== ENCOUNTER 2017-12-13 12:28 | Emergency (ER) | payer MEDICARE, OTHER ==
[~2017-12-13] VITALS: Ht 152.4 cm; Wt 48.0 kg
[~2017-12-13 12:28] MED LIST changes: +APIX5TAB3 PO; +COR3.125T PO; +FURO-150 PO; +LEVO750T46 PO; +LOVA40TA2; -NAPR-56 PO; +OMEP-50; +PRED20TA PO; +UMEC1DIS INH
[2017-12-13 13:15] LABS: BASOPHILS # (AUTO) 0.1 X10'3 (0-0.2); BASOPHILS % (AUTO) 0.2 % (0-1); EOSINOPHILS % (AUTO) 0 % (0-6); HEMATOCRIT 39.2 % (35.0-45.0); HEMOGLOBIN 13.3 g/dl (12.0-16.0); LYMPHOCYTES # (AUTO) 0.9 X10'3 (1.1-4.8); LYMPHOCYTES % (AUTO) 3.7 % (21-51); MEAN CORPUSCULAR HEMOGLOBIN 29.4 PG (27.0-31.0); MEAN CORPUSCULAR HGB CONC 33.8 % (33.0-36.5); MEAN CORPUSCULAR VOLUME 86.8 FL (78-98); MEAN PLATELET VOLUME 7.5 FL (7.4-10.4); MONOCYTES # (AUTO) 0.1 X10'3 (0-0.9); MONOCYTES % (AUTO) 0.6 % (2-12); NEUTROPHILS # (AUTO) 22.8 X10'3 (1.8-7.7); NEUTROPHILS % (AUTO) 95.5 % (42-75); PLATELET COUNT 186 X10'3 (140-440); RED BLOOD COUNT 4.52 X10'6 (4.20-5.60); RED CELL DISTRIBUTION WIDTH 15.1 % (11.5-14.5); WHITE BLOOD COUNT 23.9 X10'3 (4.5-11.0)
[2017-12-13 13:29] LABS: ALANINE AMINOTRANSFERASE 56 U/L (12-78); ALBUMIN/GLOBULIN RATIO 0.8 (1.1-1.5); ALKALINE PHOSPHATASE 109 IU/L (46-116); ANION GAP 10 (8-16); ASPARTATE AMINO TRANSFERASE 33 U/L (10-37); BILIRUBIN,TOTAL 1.1 MG/DL (0.1-1.0); BLOOD UREA NITROGEN 31 MG/DL (7-18); BUN/CREATININE RATIO 29.2 (6.6-38.0); CALCIUM 8.9 MG/DL (8.5-10.1); CHLORIDE 101 MMOL/L (99-107); CREATININE 1.06 MG/DL (0.40-0.90); GLUCOSE 154 MG/DL (70-104); POTASSIUM 4.7 MMOL/L (3.5-5.1); SODIUM 136 MMOL/L (135-145); TOTAL PROTEIN 6.9 G/DL (6.4-8.2); eGFR 52 ML/MIN
[2017-12-13] MEDS ORDERED: normal saline 1000ML IV soln IV ONE (13:35)
[2017-12-13] MEDS ORDERED: levoFLOXACIN-Levaquin 750MG/D5 150 ML IV STA (13:43)
[2017-12-13] MEDS ORDERED: LEVO500T89 PO (15:37)
[2017-12-13] MEDS ORDERED: ALBU6.7H INH (15:37)
[2017-12-13 16:20] VITALS: BP 115/65
== END 2017-12-13 16:24 | disposition home or self-care (01) ==
LOC: ER 12:28
DX: J18.9 Pneumonia, unspecified organism (principal); E78.00 Pure hypercholesterolemia, unspecified; Z88.0 Allergy status to penicillin; Z79.899 Other long term (current) drug therapy
CPT/HCPCS: 36415; 80053; 83605; 85025; 87040; 96361; 96374; 99285; J1956; J7030

== ENCOUNTER 2017-12-24 10:30 | Emergency (ER) | payer MEDICARE, OTHER ==
[~2017-12-24] VITALS: Ht 160 cm; Wt 48.0 kg
[~2017-12-24 10:30] MED LIST changes: +ALBU6.7H INH; +LEVO500T89 PO
[2017-12-24 11:28] LABS: BASOPHILS % (AUTO) 0.2 % (0-1); EOSINOPHILS # (AUTO) 0.1 X10'3 (0-0.9); EOSINOPHILS % (AUTO) 1.6 % (0-6); HEMATOCRIT 37.1 % (35.0-45.0); HEMOGLOBIN 12.7 g/dl (12.0-16.0); LYMPHOCYTES # (AUTO) 0.5 X10'3 (1.1-4.8); LYMPHOCYTES % (AUTO) 6.3 % (21-51); MEAN CORPUSCULAR HEMOGLOBIN 29.3 PG (27.0-31.0); MEAN CORPUSCULAR HGB CONC 34.2 % (33.0-36.5); MEAN CORPUSCULAR VOLUME 85.9 FL (78-98); MEAN PLATELET VOLUME 7.2 FL (7.4-10.4); MONOCYTES # (AUTO) 0.3 X10'3 (0-0.9); MONOCYTES % (AUTO) 3.5 % (2-12); NEUTROPHILS # (AUTO) 7.7 X10'3 (1.8-7.7); NEUTROPHILS % (AUTO) 88.4 % (42-75); PLATELET COUNT 293 X10'3 (140-440); RED BLOOD COUNT 4.32 X10'6 (4.20-5.60); RED CELL DISTRIBUTION WIDTH 17.1 % (11.5-14.5); WHITE BLOOD COUNT 8.7 X10'3 (4.5-11.0)
[2017-12-24 11:37] LABS: PARTIAL THROMBOPLASTIN TIME 30 SECONDS (22-32); PROTHROMBIN TIME 10.7 SECONDS (9.0-12.0)
[2017-12-24 11:42] LABS: ALANINE AMINOTRANSFERASE 32 U/L (12-78); ALBUMIN 2.9 G/DL (3.4-5.0); ALBUMIN/GLOBULIN RATIO 0.7 (1.1-1.5); ALKALINE PHOSPHATASE 107 IU/L (46-116); ANION GAP 14 (8-16); ASPARTATE AMINO TRANSFERASE 19 U/L (10-37); BILIRUBIN,TOTAL 1.4 MG/DL (0.1-1.0); BLOOD UREA NITROGEN 17 MG/DL (7-18); BUN/CREATININE RATIO 16.2 (6.6-38.0); CALCIUM 9.1 MG/DL (8.5-10.1); CHLORIDE 105 MMOL/L (99-107); CREATININE 1.05 MG/DL (0.40-0.90); GLUCOSE 173 MG/DL (70-104); POTASSIUM 3.8 MMOL/L (3.5-5.1); SODIUM 140 MMOL/L (135-145); TOTAL CARBON DIOXIDE 21.5 MMOL/L (24-32); TOTAL PROTEIN 6.9 G/DL (6.4-8.2); eGFR 52 ML/MIN
[2017-12-24 12:03] LABS: ANISOCYTOSIS 1+; PLATELET ESTIMATE NORMAL; TOTAL CELLS COUNTED 100
[2017-12-24 12:04] LABS: MICROCYTOSIS 1+
[2017-12-24] MEDS ORDERED: magnesium oxide 400mg tablet PO ONE (12:20)
[2017-12-24] MEDS ORDERED: carVEDilol 3.125mg tablet PO SCH (12:25)
[2017-12-24 12:36] LABS: MAGNESIUM 1.8 MG/DL (1.5-2.4)
[2017-12-24 13:13] VITALS: BP 91/56
[2017-12-24] MEDS ORDERED: carVEDilol 3.125mg tablet PO ONE (13:35)
== END 2017-12-24 14:12 | disposition home or self-care (01) ==
LOC: ER 10:31
DX: R00.2 Palpitations (principal); I49.8 Other specified cardiac arrhythmias; I48.91 Unspecified atrial fibrillation; E78.00 Pure hypercholesterolemia, unspecified; Z88.0 Allergy status to penicillin; Z79.899 Other long term (current) drug therapy
CPT/HCPCS: 36415; 71045; 80053; 83735; 84484; 85025; 85610; 85730; 93005; 99285

== ENCOUNTER 2018-01-03 11:21 | Inpatient (IN) | payer MEDICARE, OTHER ==
[~2018-01-03] VITALS: Ht 152.4 cm; Wt 51.0 kg
[~2018-01-03 11:21] MED LIST changes: -LEVO500T89 PO
[2018-01-03 11:53] LABS: BASOPHILS % (AUTO) 0.1 % (0-1); EOSINOPHILS % (AUTO) 0 % (0-6); HEMATOCRIT 34.6 % (35.0-45.0); HEMOGLOBIN 11.8 g/dl (12.0-16.0); LYMPHOCYTES # (AUTO) 0.9 X10'3 (1.1-4.8); LYMPHOCYTES % (AUTO) 8.5 % (21-51); MEAN CORPUSCULAR HEMOGLOBIN 29.6 PG (27.0-31.0); MEAN CORPUSCULAR HGB CONC 34.2 % (33.0-36.5); MEAN CORPUSCULAR VOLUME 86.5 FL (78-98); MEAN PLATELET VOLUME 7.7 FL (7.4-10.4); MONOCYTES # (AUTO) 0.6 X10'3 (0-0.9); MONOCYTES % (AUTO) 5.8 % (2-12); NEUTROPHILS # (AUTO) 9.4 X10'3 (1.8-7.7); NEUTROPHILS % (AUTO) 85.6 % (42-75); PLATELET COUNT 330 X10'3 (140-440); RED CELL DISTRIBUTION WIDTH 17.7 % (11.5-14.5); WHITE BLOOD COUNT 10.9 X10'3 (4.5-11.0)
[2018-01-03 12:04] LABS: PARTIAL THROMBOPLASTIN TIME 30 SECONDS (22-32); PROTHROMBIN TIME 10.5 SECONDS (9.0-12.0)
[2018-01-03 12:08] LABS: ALANINE AMINOTRANSFERASE 16 U/L (12-78); ALBUMIN 2.7 G/DL (3.4-5.0); ALBUMIN/GLOBULIN RATIO 0.6 (1.1-1.5); ALKALINE PHOSPHATASE 107 IU/L (46-116); ANION GAP 9 (8-16); ASPARTATE AMINO TRANSFERASE 20 U/L (10-37); BILIRUBIN,TOTAL 0.8 MG/DL (0.1-1.0); BLOOD UREA NITROGEN 10 MG/DL (7-18); BUN/CREATININE RATIO 11.8 (6.6-38.0); CALCIUM 8.9 MG/DL (8.5-10.1); CHLORIDE 104 MMOL/L (99-107); CREATININE 0.85 MG/DL (0.40-0.90); GLUCOSE 146 MG/DL (70-104); SODIUM 138 MMOL/L (135-145); TOTAL CARBON DIOXIDE 24.9 MMOL/L (24-32); TOTAL PROTEIN 7.2 G/DL (6.4-8.2); eGFR 67 ML/MIN
[2018-01-03 12:09] LABS: POTASSIUM 4.2 MMOL/L (3.5-5.1)
[2018-01-03] MEDS ORDERED: ipratropium/albuterol 3ml nebule NEB ONE (13:25)
[2018-01-03] MEDS ORDERED: dexamethasone 4mg tablet PO ONE (13:25)
[2018-01-03 13:54] LABS: D-DIMER 7.84 MG/L FEU (0-0.50)
[2018-01-03] MEDS ORDERED: LORazepam 1 MG tablet PO ONE (14:25)
[2018-01-03 14:26] LABS: ABG BASE EXCESS -5.2 mmol/L (-2.0-3.0); ABG HCO3 16.3 mmol/L (22.0-26.0); ABG OXYGEN SATURATION 95.6 % (95-98); ABG PCO2 (T) 21.6 mmHg (32.0-45.0); ABG PH (T) 7.496 (7.350-7.450); ABG PO2 (T) 68.4 mmHg (83-108); ALLEN'S TEST Positive; FCOHb 0.8 % (0.5-1.5); FLOW 2 L/min; FMetHb 0.3 % (0.3-1.12); FO2Hb 94.5 % (94-100); TOTAL HEMOGLOBIN 11.2 G/dl (12.0-16.0)
[2018-01-03] MEDS ORDERED: potassium Cl 40MEQ/NS 500ml 500 ML IV PRN ×2 (16:30)
[2018-01-03] MEDS ORDERED: magnesium Cl slow-release 64mg tablet PO PRN (16:30)
[2018-01-03] MEDS ORDERED: morphine 4 MG/ML inj SYRINge IV PRN ×2 (16:30)
[2018-01-03] MEDS ORDERED: acetaminophen 325mg tablet PO PRN ×2 (16:30)
[2018-01-03] MEDS ORDERED: HYDROcodone/acetaminophen 10/325mg tab PO PRN (16:30)
[2018-01-03] MEDS ORDERED: ondansetron/PF 4mg/2ml inj IV PRN (16:30)
[2018-01-03] MEDS: K and/or MAG REPLACEMENT MC SCH (16:30)
[2018-01-03] MEDS ORDERED: magnesium 2GM in 50ml NS 50 ML IV PRN (16:30)
[2018-01-03] MEDS ORDERED: magnesium 4gm in 100ml NS 100 ML IV PRN (16:30)
[2018-01-03] MEDS ORDERED: mag hydrox/Alum hydrox/simeth 30ml oral suspension PO PRN (16:30)
[2018-01-03] MEDS ORDERED: magnesium hydroxide 30ml (MOM) UD suspension PO PRN (16:30)
[2018-01-03] MEDS ORDERED: HYDROcodone/acetaminophen 5mg/325mg tablet PO PRN (16:30)
[2018-01-03] MEDS ORDERED: bisacodyl 10mg suppository rectal RC PRN (16:30)
[2018-01-03] MEDS ORDERED: diphenhydrAMINE 50 mg/ml inj IV PRN (16:30)
[2018-01-03] MEDS ORDERED: potassium Cl 20 mEq SR tablet PO PRN ×2 (16:30)
[2018-01-03] MEDS ORDERED: iohexol 350MG/ML 100ml bottle IV ONE (17:01)
[2018-01-03] MEDS ORDERED: LORazepam 2 mg/ml vial IV PRN (17:10)
[2018-01-03 17:41] LABS: CLARITY,URINE CLEAR (Clear); COLOR,URINE YELLOW (Yellow); GLUCOSE, URINE NEGATIVE (Neg); KETONES,URINE TRACE mg/dl (Neg); LEUKOCYTE ESTERASE ,URINE TRACE (Neg); NITRITES, URINE NEGATIVE (Neg); OCCULT BLOOD,URINE TRACE-LYSED (Neg); PROTEIN,URINE NEGATIVE (Neg); UROBILINOGEN,URINE 0.2 E.U/dL (0.2-1.0)
[2018-01-03 17:47] LABS: UA COLLECTION TYPE CLN CATCH MIDSTREAM
[2018-01-03 17:50] LABS: WBC,URINE 0-4 /HPF (0-4)
[2018-01-03 17:51] LABS: BACTERIA,URINE FEW /HPF (Neg); MUCUS STRANDS FEW /LPF (Neg); RBC,URINE NONE SEEN /HPF (0-2); SQUAMOUS EPITHELIAL CELL,UR FEW /LPF (FEW); TRANSITIONAL EPI CELLS,URINE FEW /HPF
[2018-01-03] MEDS: normal saline 1000ml 1,000 ML IV SCH (18:35)
[2018-01-03] MEDS: carVEDilol 3.125mg tablet PO SCH (20:33)
[2018-01-03] MEDS: apixaban 5mg tablet PO SCH (20:35)
[2018-01-03] MEDS: furosemide 10 MG/1 ML 10ml inj IV SCH (20:42)
[2018-01-03] MEDS ORDERED: temazepam 15mg capsule PO PRN (21:00)
[2018-01-04] VITALS (8 sets, daily range): BP systolic 92–104; BP diastolic 49–68
[2018-01-04 07:18] LABS: BASOPHILS % (AUTO) 0 % (0-1); EOSINOPHILS % (AUTO) 0 % (0-6); HEMATOCRIT 33.4 % (35.0-45.0); HEMOGLOBIN 11.3 g/dl (12.0-16.0); LYMPHOCYTES # (AUTO) 0.6 X10'3 (1.1-4.8); LYMPHOCYTES % (AUTO) 7.2 % (21-51); MEAN CORPUSCULAR HEMOGLOBIN 29.3 PG (27.0-31.0); MEAN CORPUSCULAR HGB CONC 33.8 % (33.0-36.5); MEAN CORPUSCULAR VOLUME 86.8 FL (78-98); MEAN PLATELET VOLUME 7.9 FL (7.4-10.4); MONOCYTES # (AUTO) 0.1 X10'3 (0-0.9); NEUTROPHILS # (AUTO) 7.9 X10'3 (1.8-7.7); NEUTROPHILS % (AUTO) 91.8 % (42-75); PLATELET COUNT 377 X10'3 (140-440); RED BLOOD COUNT 3.85 X10'6 (4.20-5.60); RED CELL DISTRIBUTION WIDTH 17.5 % (11.5-14.5); WHITE BLOOD COUNT 8.6 X10'3 (4.5-11.0)
[2018-01-04 07:36] LABS: ALANINE AMINOTRANSFERASE 17 U/L (12-78); ALBUMIN 2.6 G/DL (3.4-5.0); ALBUMIN/GLOBULIN RATIO 0.6 (1.1-1.5); ALKALINE PHOSPHATASE 96 IU/L (46-116); ANION GAP 12 (8-16); ASPARTATE AMINO TRANSFERASE 14 U/L (10-37); BILIRUBIN,TOTAL 0.7 MG/DL (0.1-1.0); BLOOD UREA NITROGEN 14 MG/DL (7-18); BUN/CREATININE RATIO 14.1 (6.6-38.0); CHLORIDE 105 MMOL/L (99-107); CREATININE 0.99 MG/DL (0.40-0.90); GLUCOSE 158 MG/DL (70-104); LACTATE DEHYDROGENASE 195 U/L (81-234); PHOSPHORUS 4.1 MG/DL (2.3-4.5); POTASSIUM 4.1 MMOL/L (3.5-5.1); SODIUM 140 MMOL/L (135-145); TOTAL CARBON DIOXIDE 22.7 MMOL/L (24-32); eGFR 56 ML/MIN
[2018-01-04] MEDS: apixaban 5mg tablet PO SCH ×2 (08:00→20:33)
[2018-01-04] MEDS: carVEDilol 3.125mg tablet PO SCH ×2 (08:00→20:33)
[2018-01-04] MEDS: furosemide 10 MG/1 ML 10ml inj IV SCH (08:00)
[2018-01-04] MEDS: K and/or MAG REPLACEMENT MC SCH (08:00)
[2018-01-04] MEDS: normal saline 1000ml 1,000 ML IV SCH (14:15)
[2018-01-04] MEDS ORDERED: LIDOcaine 1%/PF (10mg/ml) 5ml vial ONE (14:39)
[2018-01-04 15:46] LABS: BFSOURCE RIGHT PLEURAL FLD; PLEURAL FLUID PH 7.467 (7.63-7.65)
[2018-01-04 15:52] LABS: LDH,BODY FLUID 141 U/L; TOTAL PROTEIN,BODY FLUID 3.8 G/DL
[2018-01-04 16:50] LABS: LYMPHOCYTES,BODY FLUID 77 %; MONOCYTES,BODY FLUID 10 %; NEUTROPHILS,BODY FLUID 13 %
[2018-01-04 16:51] LABS: BF MESOTHELIAL CELLS MODERATE; BF RBC COUNT 5550 /CU MM; BF WBC COUNT 1700 /CU MM (0-1000); BFAPPEAR CLOUDY; BFCOLOR AMBER; BFVOLUME 53 ML
[2018-01-04] MEDS: furosemide 40mg/4ml inj IV SCH (20:33)
[2018-01-04] MEDS: pantoprazole 40mg Tablet.DR PO SCH (20:34)
[2018-01-05 03:00] VITALS: BP 86/52
[2018-01-05 06:53] LABS: BASOPHILS % (AUTO) 0 % (0-1); EOSINOPHILS % (AUTO) 0 % (0-6); HEMATOCRIT 32.9 % (35.0-45.0); HEMOGLOBIN 11.1 g/dl (12.0-16.0); LYMPHOCYTES # (AUTO) 1.2 X10'3 (1.1-4.8); LYMPHOCYTES % (AUTO) 6.7 % (21-51); MEAN CORPUSCULAR HEMOGLOBIN 29.6 PG (27.0-31.0); MEAN CORPUSCULAR HGB CONC 33.7 % (33.0-36.5); MEAN CORPUSCULAR VOLUME 87.9 FL (78-98); MEAN PLATELET VOLUME 8.2 FL (7.4-10.4); MONOCYTES # (AUTO) 0.8 X10'3 (0-0.9); MONOCYTES % (AUTO) 4.4 % (2-12); NEUTROPHILS # (AUTO) 16.3 X10'3 (1.8-7.7); NEUTROPHILS % (AUTO) 88.9 % (42-75); PLATELET COUNT 407 X10'3 (140-440); RED BLOOD COUNT 3.74 X10'6 (4.20-5.60); RED CELL DISTRIBUTION WIDTH 17.6 % (11.5-14.5); WHITE BLOOD COUNT 18.4 X10'3 (4.5-11.0)
[2018-01-05 07:00] VITALS: BP 93/52
[2018-01-05 07:14] LABS: ALANINE AMINOTRANSFERASE 17 U/L (12-78); ALBUMIN 2.6 G/DL (3.4-5.0); ALBUMIN/GLOBULIN RATIO 0.7 (1.1-1.5); ALKALINE PHOSPHATASE 88 IU/L (46-116); ANION GAP 12 (8-16); ASPARTATE AMINO TRANSFERASE 16 U/L (10-37); BILIRUBIN,TOTAL 0.5 MG/DL (0.1-1.0); BLOOD UREA NITROGEN 23 MG/DL (7-18); BUN/CREATININE RATIO 23.2 (6.6-38.0); CALCIUM 8.7 MG/DL (8.5-10.1); CHLORIDE 104 MMOL/L (99-107); CREATININE 0.99 MG/DL (0.40-0.90); GLUCOSE 155 MG/DL (70-104); PHOSPHORUS 4.1 MG/DL (2.3-4.5); POTASSIUM 3.4 MMOL/L (3.5-5.1); SODIUM 140 MMOL/L (135-145); TOTAL CARBON DIOXIDE 23.8 MMOL/L (24-32); TOTAL PROTEIN 6.5 G/DL (6.4-8.2); eGFR 56 ML/MIN
[2018-01-05] MEDS: atorvastatin 10mg tablet PO SCH (07:30)
[2018-01-05] MEDS: apixaban 5mg tablet PO SCH ×2 (07:30→20:41)
[2018-01-05] MEDS: furosemide 40mg/4ml inj IV SCH ×2 (07:30→20:41)
[2018-01-05] MEDS: carVEDilol 3.125mg tablet PO SCH ×2 (07:30→20:41)
[2018-01-05] MEDS: pantoprazole 40mg Tablet.DR PO SCH ×2 (07:30→20:41)
[2018-01-05] MEDS: K and/or MAG REPLACEMENT MC SCH (08:00)
[2018-01-05] MEDS: normal saline 1000ml 1,000 ML IV SCH (08:28)
[2018-01-05] MEDS ORDERED: nitroGLYCERIN 0.4mg SUBLingual tab SL PRN (08:40)
[2018-01-05] MEDS ORDERED: aminophylline 250mg/10ml inj. IV PRN (08:40)
[2018-01-05] MEDS ORDERED: regadenoson 0.4mg/5ml syringe IV ONE (08:40)
[2018-01-05] MEDS ORDERED: metoprolol tartrate 1mg/ml inj IV PRN (08:40)
[2018-01-05 11:00] VITALS: BP 87/50
[2018-01-05] MEDS ORDERED: vancomycin/NS 1 GM ADD-VANTAGE 250 ML IV SCH (11:00)
[2018-01-05] MEDS ORDERED: potassium Cl oral solution 20 MEQ/15 ML PO PRN (13:00)
[2018-01-05 15:00] VITALS: BP 90/50
[2018-01-05 19:00] VITALS: BP 84/50
[2018-01-05] MEDS ORDERED: levoFLOXACIN-Levaquin 750MG/D5 150 ML IV SCH (20:00)
[2018-01-06] VITALS (13 sets, daily range): BP systolic 79–106; BP diastolic 43–63
[2018-01-06 06:07] LABS: BASOPHILS % (AUTO) 0 % (0-1); EOSINOPHILS # (AUTO) 0.1 X10'3 (0-0.9); HEMATOCRIT 34.6 % (35.0-45.0); HEMOGLOBIN 11.7 g/dl (12.0-16.0); LYMPHOCYTES # (AUTO) 1.4 X10'3 (1.1-4.8); LYMPHOCYTES % (AUTO) 13.8 % (21-51); MEAN CORPUSCULAR HEMOGLOBIN 29.4 PG (27.0-31.0); MEAN CORPUSCULAR HGB CONC 33.8 % (33.0-36.5); MEAN CORPUSCULAR VOLUME 86.9 FL (78-98); MEAN PLATELET VOLUME 7.8 FL (7.4-10.4); MONOCYTES # (AUTO) 0.7 X10'3 (0-0.9); MONOCYTES % (AUTO) 6.9 % (2-12); NEUTROPHILS # (AUTO) 8.2 X10'3 (1.8-7.7); NEUTROPHILS % (AUTO) 78.3 % (42-75); PLATELET COUNT 433 X10'3 (140-440); RED BLOOD COUNT 3.98 X10'6 (4.20-5.60); RED CELL DISTRIBUTION WIDTH 17.6 % (11.5-14.5); WHITE BLOOD COUNT 10.5 X10'3 (4.5-11.0)
[2018-01-06 06:25] LABS: ALANINE AMINOTRANSFERASE 18 U/L (12-78); ALBUMIN 2.8 G/DL (3.4-5.0); ALBUMIN/GLOBULIN RATIO 0.7 (1.1-1.5); ALKALINE PHOSPHATASE 84 IU/L (46-116); ANION GAP 10 (8-16); ASPARTATE AMINO TRANSFERASE 17 U/L (10-37); BILIRUBIN,TOTAL 0.7 MG/DL (0.1-1.0); BLOOD UREA NITROGEN 22 MG/DL (7-18); BUN/CREATININE RATIO 21.8 (6.6-38.0); CALCIUM 8.7 MG/DL (8.5-10.1); CHLORIDE 105 MMOL/L (99-107); CREATININE 1.01 MG/DL (0.40-0.90); GLUCOSE 100 MG/DL (70-104); MAGNESIUM 1.7 MG/DL (1.5-2.4); PHOSPHORUS 3.8 MG/DL (2.3-4.5); POTASSIUM 3.2 MMOL/L (3.5-5.1); SODIUM 144 MMOL/L (135-145); TOTAL CARBON DIOXIDE 28.8 MMOL/L (24-32); TOTAL PROTEIN 6.7 G/DL (6.4-8.2); eGFR 55 ML/MIN
[2018-01-06] MEDS: normal saline 1000ml 1,000 ML IV SCH ×2 (06:55→19:14)
[2018-01-06] MEDS: carVEDilol 3.125mg tablet PO SCH ×2 (08:00→19:50)
[2018-01-06] MEDS: K and/or MAG REPLACEMENT MC SCH (08:00)
[2018-01-06] MEDS: apixaban 5mg tablet PO SCH ×2 (09:15→19:14)
[2018-01-06] MEDS: atorvastatin 10mg tablet PO SCH (09:16)
[2018-01-06] MEDS: pantoprazole 40mg Tablet.DR PO SCH ×2 (09:16→19:14)
[2018-01-06] MEDS: potassium Cl oral solution 20 MEQ/15 ML PO PRN ×3 (09:32→19:06)
[2018-01-06] MEDS ORDERED: regadenoson 0.4mg/5ml syringe IV ONE ×2 (10:40→12:05)
[2018-01-06] MEDS ORDERED: aminophylline 250mg/10ml inj. IV ONE (10:40)
[2018-01-06] MEDS ORDERED: aminophylline inj. 0 ML IV ONE (12:05)
[2018-01-06] MEDS: furosemide 40mg/4ml inj IV SCH (19:50)
[2018-01-07 03:00] VITALS: BP 102/57
[2018-01-07 05:33] LABS: BASOPHILS % (AUTO) 0.3 % (0-1); EOSINOPHILS # (AUTO) 0.2 X10'3 (0-0.9); EOSINOPHILS % (AUTO) 1.7 % (0-6); HEMATOCRIT 33.6 % (35.0-45.0); HEMOGLOBIN 11.2 g/dl (12.0-16.0); LYMPHOCYTES # (AUTO) 1.1 X10'3 (1.1-4.8); LYMPHOCYTES % (AUTO) 11.6 % (21-51); MEAN CORPUSCULAR HEMOGLOBIN 29.2 PG (27.0-31.0); MEAN CORPUSCULAR HGB CONC 33.2 % (33.0-36.5); MEAN CORPUSCULAR VOLUME 87.8 FL (78-98); MEAN PLATELET VOLUME 7.9 FL (7.4-10.4); MONOCYTES # (AUTO) 0.6 X10'3 (0-0.9); MONOCYTES % (AUTO) 6.7 % (2-12); NEUTROPHILS # (AUTO) 7.3 X10'3 (1.8-7.7); NEUTROPHILS % (AUTO) 79.7 % (42-75); PLATELET COUNT 400 X10'3 (140-440); RED BLOOD COUNT 3.82 X10'6 (4.20-5.60); RED CELL DISTRIBUTION WIDTH 17.2 % (11.5-14.5); WHITE BLOOD COUNT 9.1 X10'3 (4.5-11.0)
[2018-01-07 05:52] LABS: ALANINE AMINOTRANSFERASE 17 U/L (12-78); ALBUMIN 2.7 G/DL (3.4-5.0); ALBUMIN/GLOBULIN RATIO 0.7 (1.1-1.5); ALKALINE PHOSPHATASE 91 IU/L (46-116); ANION GAP 11 (8-16); ASPARTATE AMINO TRANSFERASE 16 U/L (10-37); BILIRUBIN,TOTAL 0.7 MG/DL (0.1-1.0); BLOOD UREA NITROGEN 19 MG/DL (7-18); BUN/CREATININE RATIO 21.3 (6.6-38.0); CALCIUM 8.8 MG/DL (8.5-10.1); CHLORIDE 107 MMOL/L (99-107); CREATININE 0.89 MG/DL (0.40-0.90); GLUCOSE 100 MG/DL (70-104); MAGNESIUM 1.8 MG/DL (1.5-2.4); PHOSPHORUS 3.1 MG/DL (2.3-4.5); POTASSIUM 4.3 MMOL/L (3.5-5.1); SODIUM 141 MMOL/L (135-145); TOTAL CARBON DIOXIDE 23.4 MMOL/L (24-32); TOTAL PROTEIN 6.4 G/DL (6.4-8.2); eGFR 63 ML/MIN
[2018-01-07 07:01] VITALS: BP 101/54
[2018-01-07] MEDS: K and/or MAG REPLACEMENT MC SCH (08:00)
[2018-01-07] MEDS: carVEDilol 3.125mg tablet PO SCH ×2 (08:37→20:00)
[2018-01-07] MEDS: apixaban 5mg tablet PO SCH ×2 (08:37→21:06)
[2018-01-07] MEDS: pantoprazole 40mg Tablet.DR PO SCH ×2 (08:37→21:06)
[2018-01-07] MEDS: atorvastatin 10mg tablet PO SCH (08:37)
[2018-01-07] MEDS: furosemide 40mg/4ml inj IV SCH ×2 (08:38→20:00)
[2018-01-07 11:00] VITALS: BP 87/52
[2018-01-07 15:00] VITALS: BP 94/56
[2018-01-07 18:00] VITALS: BP 87/57
[2018-01-07 22:00] VITALS: BP 98/51
[2018-01-08] VITALS (7 sets, daily range): BP systolic 85–102; BP diastolic 42–65
[2018-01-08 05:32] LABS: BASOPHILS % (AUTO) 0.2 % (0-1); EOSINOPHILS # (AUTO) 0.1 X10'3 (0-0.9); EOSINOPHILS % (AUTO) 1.8 % (0-6); HEMATOCRIT 33.6 % (35.0-45.0); HEMOGLOBIN 11.2 g/dl (12.0-16.0); LYMPHOCYTES # (AUTO) 1.1 X10'3 (1.1-4.8); LYMPHOCYTES % (AUTO) 13.3 % (21-51); MEAN CORPUSCULAR HEMOGLOBIN 29.4 PG (27.0-31.0); MEAN CORPUSCULAR HGB CONC 33.2 % (33.0-36.5); MEAN CORPUSCULAR VOLUME 88.3 FL (78-98); MEAN PLATELET VOLUME 7.9 FL (7.4-10.4); MONOCYTES # (AUTO) 0.6 X10'3 (0-0.9); MONOCYTES % (AUTO) 7.4 % (2-12); NEUTROPHILS # (AUTO) 6.1 X10'3 (1.8-7.7); NEUTROPHILS % (AUTO) 77.3 % (42-75); PLATELET COUNT 402 X10'3 (140-440); RED BLOOD COUNT 3.81 X10'6 (4.20-5.60); RED CELL DISTRIBUTION WIDTH 17.3 % (11.5-14.5); WHITE BLOOD COUNT 7.9 X10'3 (4.5-11.0)
[2018-01-08 06:16] LABS: ALANINE AMINOTRANSFERASE 11 U/L (12-78); ALBUMIN 2.5 G/DL (3.4-5.0); ALBUMIN/GLOBULIN RATIO 0.7 (1.1-1.5); ALKALINE PHOSPHATASE 94 IU/L (46-116); ANION GAP 9 (8-16); ASPARTATE AMINO TRANSFERASE 11 U/L (10-37); BILIRUBIN,TOTAL 0.7 MG/DL (0.1-1.0); BLOOD UREA NITROGEN 12 MG/DL (7-18); BUN/CREATININE RATIO 15.8 (6.6-38.0); CHLORIDE 106 MMOL/L (99-107); CREATININE 0.76 MG/DL (0.40-0.90); GLUCOSE 110 MG/DL (70-104); MAGNESIUM 1.9 MG/DL (1.5-2.4); PHOSPHORUS 3.4 MG/DL (2.3-4.5); SODIUM 139 MMOL/L (135-145); TOTAL CARBON DIOXIDE 24.5 MMOL/L (24-32); TOTAL PROTEIN 6.1 G/DL (6.4-8.2); eGFR 76 ML/MIN
[2018-01-08] MEDS: carVEDilol 3.125mg tablet PO SCH ×2 (08:57→20:21)
[2018-01-08] MEDS: apixaban 5mg tablet PO SCH ×2 (08:57→20:21)
[2018-01-08] MEDS: furosemide 40mg/4ml inj IV SCH ×2 (08:57→20:21)
[2018-01-08] MEDS: atorvastatin 10mg tablet PO SCH (08:58)
[2018-01-08] MEDS: pantoprazole 40mg Tablet.DR PO SCH ×2 (08:58→20:21)
[2018-01-08] MEDS: K and/or MAG REPLACEMENT MC SCH (09:05)
[2018-01-08] MEDS ORDERED: VANCOMYCIN LEVEL IV ONE (10:30)
[2018-01-09 03:00] VITALS: BP 100/47
[2018-01-09 06:42] VITALS: BP 85/53
[2018-01-09] MEDS: K and/or MAG REPLACEMENT MC SCH (08:00)
[2018-01-09] MEDS: pantoprazole 40mg Tablet.DR PO SCH ×2 (08:12→19:43)
[2018-01-09] MEDS: apixaban 5mg tablet PO SCH ×2 (08:12→19:43)
[2018-01-09] MEDS: atorvastatin 10mg tablet PO SCH (08:13)
[2018-01-09] MEDS: furosemide 40mg/4ml inj IV SCH ×2 (08:13→19:43)
[2018-01-09] MEDS: carVEDilol 3.125mg tablet PO SCH ×2 (08:13→19:43)
[2018-01-09] MEDS ORDERED: COR3.125T PO (10:45)
[2018-01-09] MEDS ORDERED: FURO-150 PO ×2 (10:45)
[2018-01-09 15:00] VITALS: BP 95/62
[2018-01-09 19:00] VITALS: BP 94/57
[2018-01-09 23:00] VITALS: BP 88/47
[2018-01-10 03:00] VITALS: BP 83/44
[2018-01-10 06:49] VITALS: BP 85/53
[2018-01-10] MEDS: carVEDilol 3.125mg tablet PO SCH (07:28)
[2018-01-10] MEDS: pantoprazole 40mg Tablet.DR PO SCH (07:29)
[2018-01-10] MEDS: atorvastatin 10mg tablet PO SCH (07:29)
[2018-01-10] MEDS: furosemide 40mg/4ml inj IV SCH (07:29)
[2018-01-10] MEDS: apixaban 5mg tablet PO SCH (07:29)
[2018-01-10] MEDS: K and/or MAG REPLACEMENT MC SCH (08:00)
[2018-01-10 11:00] VITALS: BP 76/47
== END 2018-01-10 14:15 | disposition home health service (06) | DRG 291 ==
LOC: ER 11:21 → ED HOLD 16:27 → PCU 3S 01-04 01:30
PROVIDERS: ADMIT Family Medicine; ATTEND Internal Medicine
PROC: B32T1ZZ Computerized Tomography (CT Scan) of Left Pulmonary Artery using Low Osmolar Contrast (ICD-10-PCS; principal; 2018-01-03)
PROC: B3201ZZ Computerized Tomography (CT Scan) of Thoracic Aorta using Low Osmolar Contrast (ICD-10-PCS; 2018-01-03)
PROC: B32S1ZZ Computerized Tomography (CT Scan) of Right Pulmonary Artery using Low Osmolar Contrast (ICD-10-PCS; 2018-01-03)
PROC: 0W993ZX Drainage of Right Pleural Cavity, Percutaneous Approach, Diagnostic (ICD-10-PCS; 2018-01-04)
PROC: 4A02XM4 Measurement of Cardiac Total Activity, External Approach (ICD-10-PCS; 2018-01-06)
PROC: 3E073KZ Introduction of Other Diagnostic Substance into Coronary Artery, Percutaneous Approach (ICD-10-PCS; 2018-01-06)
DX: I50.33 Acute on chronic diastolic (congestive) heart failure (principal); J96.21 Acute and chronic respiratory failure with hypoxia; E87.4 Mixed disorder of acid-base balance; J44.1 Chronic obstructive pulmonary disease with (acute) exacerbation; J91.8 Pleural effusion in other conditions classified elsewhere; D72.829 Elevated white blood cell count, unspecified; D63.8 Anemia in other chronic diseases classified elsewhere; R91.1 Solitary pulmonary nodule; E87.6 Hypokalemia; E78.00 Pure hypercholesterolemia, unspecified; I27.81 Cor pulmonale (chronic); E78.5 Hyperlipidemia, unspecified; I08.1 Rheumatic disorders of both mitral and tricuspid valves; I27.20 Pulmonary hypertension, unspecified; I48.0 Paroxysmal atrial fibrillation; M85.80 Other specified disorders of bone density and structure, unspecified site; T38.0X5A Adverse effect of glucocorticoids and synthetic analogues, initial encounter; Z79.01 Long term (current) use of anticoagulants; Z79.899 Other long term (current) drug therapy; Z88.0 Allergy status to penicillin; Z85.01 Personal history of malignant neoplasm of esophagus; Z87.891 Personal history of nicotine dependence; Z92.21 Personal history of antineoplastic chemotherapy; Z92.3 Personal history of irradiation; Z82.0 Family history of epilepsy and other diseases of the nervous system; Z82.49 Family history of ischemic heart disease and other diseases of the circulatory system
CPT/HCPCS: 32555; 36415; 36600; 71045; 71275; 78452; 80053; 81001; 82803; 83605; 83615; 83735; 83880; 83986; 84100; 84145; 84157; 84439; 84443; 84484; 85018; 85025; 85379; 85610; 85730; 87040; 87070; 87088; 88108; 88305; 89051; 93005; 94640; 94760; 97116; 97162; 97530; 99285; A4414; A6212; A6255; A9500; J0280; J1940; J2001; J2785; J3370; J7030; J8540; Q9967

== ENCOUNTER 2018-01-16 10:42 | Emergency (ER) | payer MEDICARE, OTHER ==
[~2018-01-16] VITALS: Ht 5032.2 cm; Wt 48.0 kg
[~2018-01-16 10:42] MED LIST changes: -ALBU6.7H INH; -LEVO750T46 PO; -PRED20TA PO; -UMEC1DIS INH
[2018-01-16 11:35] LABS: BASOPHILS % (AUTO) 0.1 % (0-1); EOSINOPHILS # (AUTO) 0.2 X10'3 (0-0.9); EOSINOPHILS % (AUTO) 1.1 % (0-6); HEMATOCRIT 33.1 % (35.0-45.0); HEMOGLOBIN 11.6 g/dl (12.0-16.0); LYMPHOCYTES # (AUTO) 1.3 X10'3 (1.1-4.8); LYMPHOCYTES % (AUTO) 7.2 % (21-51); MEAN CORPUSCULAR HEMOGLOBIN 29.9 PG (27.0-31.0); MEAN CORPUSCULAR HGB CONC 34.9 % (33.0-36.5); MEAN CORPUSCULAR VOLUME 85.6 FL (78-98); MEAN PLATELET VOLUME 8.3 FL (7.4-10.4); MONOCYTES # (AUTO) 0.8 X10'3 (0-0.9); MONOCYTES % (AUTO) 4.4 % (2-12); NEUTROPHILS # (AUTO) 15.8 X10'3 (1.8-7.7); NEUTROPHILS % (AUTO) 87.2 % (42-75); PLATELET COUNT 336 X10'3 (140-440); RED BLOOD COUNT 3.87 X10'6 (4.20-5.60); RED CELL DISTRIBUTION WIDTH 17.3 % (11.5-14.5); WHITE BLOOD COUNT 18.1 X10'3 (4.5-11.0)
[2018-01-16 11:50] LABS: ALANINE AMINOTRANSFERASE 16 U/L (12-78); ALBUMIN 2.5 G/DL (3.4-5.0); ALBUMIN/GLOBULIN RATIO 0.6 (1.1-1.5); ALKALINE PHOSPHATASE 94 IU/L (46-116); ANION GAP 13 (8-16); ASPARTATE AMINO TRANSFERASE 16 U/L (10-37); BILIRUBIN,TOTAL 1.3 MG/DL (0.1-1.0); BLOOD UREA NITROGEN 18 MG/DL (7-18); CHLORIDE 95 MMOL/L (99-107); GLUCOSE 160 MG/DL (70-104); POTASSIUM 3.3 MMOL/L (3.5-5.1); SODIUM 134 MMOL/L (135-145); TOTAL CARBON DIOXIDE 26.3 MMOL/L (24-32); eGFR 55 ML/MIN
[2018-01-16 11:57] LABS: ANISOCYTOSIS 1+; PLATELET ESTIMATE NORMAL
[2018-01-16] MEDS ORDERED: levoFLOXACIN 250mg tablet PO ONE (14:25)
[2018-01-16 14:52] LABS: ALBUMIN,BODY FLUID 1.8 G/DL; TOTAL PROTEIN,BODY FLUID 3.5 G/DL
[2018-01-16 14:53] LABS: LDH,BODY FLUID 110 U/L
[2018-01-16 15:16] LABS: LYMPHOCYTES,BODY FLUID 75 %; MONOCYTES,BODY FLUID 9 %; NEUTROPHILS,BODY FLUID 16 %
[2018-01-16 15:17] LABS: BF MESOTHELIAL CELLS FEW; BFAPPEAR CLOUDY; BFCOLOR YELLOW; BFVOLUME 13 ML
[2018-01-16 15:29] LABS: BF RBC COUNT 1875 /CU MM; BF WBC COUNT 2150 /CU MM (0-1000)
[2018-01-16] MEDS ORDERED: LEVO500T89 PO (15:42)
[2018-01-16 16:23] VITALS: BP 99/64
[2018-01-16 17:25] LABS: LYMPHOCYTES,BODY FLUID 26 %; MONOCYTES,BODY FLUID 5 %; NEUTROPHILS,BODY FLUID 69 %
[2018-01-16 17:29] LABS: BF RBC COUNT 1000 /CU MM; BF WBC COUNT 4450 /CU MM (0-1000); BFAPPEAR CLOUDY; BFCOLOR YELLOW; BFVOLUME 9 ML
[2018-01-16 17:30] LABS: BF MESOTHELIAL CELLS FEW
== END 2018-01-16 16:26 | disposition home or self-care (01) ==
LOC: ER 10:42
DX: J96.20 Acute and chronic respiratory failure, unspecified whether with hypoxia or hypercapnia (principal); J90 Pleural effusion, not elsewhere classified; D72.829 Elevated white blood cell count, unspecified; Z88.0 Allergy status to penicillin; I48.91 Unspecified atrial fibrillation; E78.00 Pure hypercholesterolemia, unspecified; Z79.899 Other long term (current) drug therapy; Z99.81 Dependence on supplemental oxygen
CPT/HCPCS: 32555; 36415; 71045; 71046; 80053; 82042; 83605; 83615; 84157; 85025; 87040; 87070; 89051; 93005; 99285

== ENCOUNTER 2018-01-31 11:33 | Emergency (ER) | payer MEDICARE, OTHER ==
[~2018-01-31] VITALS: Ht 152.4 cm; Wt 50.0 kg
[2018-01-31 12:22] LABS: INR 1.1 INR; PARTIAL THROMBOPLASTIN TIME 28 SECONDS (22-32); PROTHROMBIN TIME 11.2 SECONDS (9.0-12.0)
[2018-01-31 12:23] LABS: BASOPHILS # (AUTO) 0.1 X10'3 (0-0.2); BASOPHILS % (AUTO) 0.6 % (0-1); EOSINOPHILS # (AUTO) 0.2 X10'3 (0-0.9); EOSINOPHILS % (AUTO) 2.3 % (0-6); HEMATOCRIT 37.1 % (35.0-45.0); HEMOGLOBIN 12.4 g/dl (12.0-16.0); LYMPHOCYTES # (AUTO) 1.5 X10'3 (1.1-4.8); LYMPHOCYTES % (AUTO) 14.8 % (21-51); MEAN CORPUSCULAR HEMOGLOBIN 29.1 PG (27.0-31.0); MEAN CORPUSCULAR HGB CONC 33.3 % (33.0-36.5); MEAN CORPUSCULAR VOLUME 87.4 FL (78-98); MEAN PLATELET VOLUME 7.4 FL (7.4-10.4); MONOCYTES # (AUTO) 0.8 X10'3 (0-0.9); MONOCYTES % (AUTO) 8.1 % (2-12); NEUTROPHILS # (AUTO) 7.5 X10'3 (1.8-7.7); NEUTROPHILS % (AUTO) 74.2 % (42-75); PLATELET COUNT 338 X10'3 (140-440); RED BLOOD COUNT 4.24 X10'6 (4.20-5.60); RED CELL DISTRIBUTION WIDTH 18.6 % (11.5-14.5); WHITE BLOOD COUNT 10.1 X10'3 (4.5-11.0)
[2018-01-31 12:27] LABS: ALANINE AMINOTRANSFERASE 15 U/L (12-78); ALBUMIN/GLOBULIN RATIO 0.7 (1.1-1.5); ALKALINE PHOSPHATASE 92 IU/L (46-116); ANION GAP 8 (8-16); ASPARTATE AMINO TRANSFERASE 19 U/L (10-37); BILIRUBIN,TOTAL 0.7 MG/DL (0.1-1.0); BLOOD UREA NITROGEN 11 MG/DL (7-18); BUN/CREATININE RATIO 13.3 (6.6-38.0); CALCIUM 9.2 MG/DL (8.5-10.1); CHLORIDE 108 MMOL/L (99-107); CREATININE 0.83 MG/DL (0.40-0.90); GLUCOSE 115 MG/DL (70-104); SODIUM 141 MMOL/L (135-145); TOTAL CARBON DIOXIDE 24.8 MMOL/L (24-32); TOTAL PROTEIN 7.1 G/DL (6.4-8.2); eGFR 69 ML/MIN
[2018-01-31 13:13] VITALS: BP 108/69
[2018-02-01] MEDS ORDERED: CARV-49 PO (10:27)
[2018-02-01] MEDS ORDERED: LOVA40TA2 PO (10:29)
[2018-02-01] MEDS ORDERED: APIX5TAB3 PO (10:29)
[2018-02-01] MEDS ORDERED: OMEP20CA10 PO (10:29)
== END 2018-01-31 13:20 | disposition home or self-care (01) ==
LOC: ER 11:33
DX: J90 Pleural effusion, not elsewhere classified (principal); R06.02 Shortness of breath; I48.91 Unspecified atrial fibrillation; E78.00 Pure hypercholesterolemia, unspecified; Z99.81 Dependence on supplemental oxygen; Z88.0 Allergy status to penicillin
CPT/HCPCS: 36415; 71045; 80053; 84484; 85025; 85610; 85730; 93005; 99285

== ENCOUNTER 2018-02-01 09:58 | Day surgery (SDC) | payer MEDICARE ==
[2018-02-01] MEDS ORDERED: CARV-49 PO (10:27)
[2018-02-01] MEDS ORDERED: LIDOcaine 1% 30ml preserv. free vial SQ STA (10:27)
[2018-02-01] MEDS ORDERED: APIX5TAB3 PO (10:29)
[2018-02-01] MEDS ORDERED: OMEP20CA10 PO (10:29)
[2018-02-01] MEDS ORDERED: LOVA40TA2 PO (10:29)
[2018-02-01 10:30] VITALS: BP 91/52
[2018-02-01 11:13] VITALS: BP 91/52
== END 2018-02-01 12:40 | disposition home or self-care (01) ==
LOC: SSTAY O 09:58
PROVIDERS: ATTEND Radiology Vascular & Interventional Radiology
DX: J90 Pleural effusion, not elsewhere classified (principal); J43.9 Emphysema, unspecified; E78.00 Pure hypercholesterolemia, unspecified; M85.88 Other specified disorders of bone density and structure, other site; I48.0 Paroxysmal atrial fibrillation; I49.8 Other specified cardiac arrhythmias; Z85.01 Personal history of malignant neoplasm of esophagus; Z79.2 Long term (current) use of antibiotics; Z79.01 Long term (current) use of anticoagulants; Z88.0 Allergy status to penicillin; Z87.891 Personal history of nicotine dependence; Z79.899 Other long term (current) drug therapy; Z98.890 Other specified postprocedural states
CPT/HCPCS: 32555; 71045; 88108; 88305

== ENCOUNTER 2018-05-07 08:42 | Day surgery (SDC) | payer MEDICARE, OTHER ==
[~2018-05-07] VITALS: Ht 152.4 cm; Wt 48.3 kg
[~2018-05-07 08:42] MED LIST changes: +CARV-49 PO; -COR3.125T PO; -FURO-150 PO; +LIDOcaine 1%/PF 5ML 10 MG/ML VIAL SQ ONE; -LOVA40TA2; +LOVA40TA2 PO; -OMEP-50; +OMEP20CA10 PO
[2018-05-07 09:00] VITALS: BP 94/62
[2018-05-07] MEDS ORDERED: LISI2.5T2 PO (09:19)
[2018-05-07 09:34] VITALS: BP 94/62
[2018-05-07 09:36] VITALS: BP 94/60
[2018-05-07 09:38] VITALS: BP 94/64
[2018-05-07 09:53] VITALS: BP 94/64
[2018-05-07 10:08] VITALS: BP 92/62
[2018-05-07 11:00] LABS: GLUCOSE,BODY FLUID 116 MG/DL; LDH,BODY FLUID 106 U/L; TOTAL PROTEIN,BODY FLUID 4.5 G/DL; TRIGLYCERIDES,BODY FLUID 24 MG/DL
[2018-05-07 11:21] LABS: BFAPPEAR CLOUDY
[2018-05-07 11:22] LABS: BF MESOTHELIAL CELLS FEW; BF RBC COUNT 1195 /CU MM; BF WBC COUNT 1115 /CU MM (0-1000); BFCOLOR YELLOW; BFVOLUME 50 ML; LYMPHOCYTES,BODY FLUID 69 %; MONOCYTES,BODY FLUID 10 %; NEUTROPHILS,BODY FLUID 21 %
== END 2018-05-07 10:15 | disposition home or self-care (01) ==
LOC: SSTAY O 08:42
PROVIDERS: ATTEND Radiology Diagnostic Radiology
DX: J90 Pleural effusion, not elsewhere classified (principal); J43.9 Emphysema, unspecified; M85.88 Other specified disorders of bone density and structure, other site; I48.0 Paroxysmal atrial fibrillation; I49.8 Other specified cardiac arrhythmias; E78.00 Pure hypercholesterolemia, unspecified; K21.9 Gastro-esophageal reflux disease without esophagitis; Z99.81 Dependence on supplemental oxygen; Z92.21 Personal history of antineoplastic chemotherapy; Z88.1 Allergy status to other antibiotic agents; Z85.01 Personal history of malignant neoplasm of esophagus; Z88.0 Allergy status to penicillin; Z79.01 Long term (current) use of anticoagulants; Z79.2 Long term (current) use of antibiotics; Z87.891 Personal history of nicotine dependence; Z79.899 Other long term (current) drug therapy; Z98.890 Other specified postprocedural states; Z82.0 Family history of epilepsy and other diseases of the nervous system; Z82.49 Family history of ischemic heart disease and other diseases of the circulatory system
CPT/HCPCS: 32555; 71045; 82945; 83615; 84157; 84478; 87015; 87070; 87102; 87116; 87206; 89051; J2001; 88108; 88305; 88341; 88342; J7030

== ENCOUNTER 2018-08-01 08:48 | Day surgery (SDC) | payer MEDICARE, OTHER ==
[~2018-08-01 08:48] MED LIST changes: -LIDOcaine 1%/PF 5ML 10 MG/ML VIAL SQ ONE; +LISI2.5T2 PO
[2018-08-01] MEDS ORDERED: LIDOcaine 1% 30ml preserv. free vial SQ ONE (09:00)
[2018-08-01 09:06] VITALS: BP 102/70
== END 2018-08-01 09:45 | disposition home or self-care (01) ==
LOC: SSTAY O 08:48
PROVIDERS: ATTEND Radiology Vascular & Interventional Radiology
DX: J90 Pleural effusion, not elsewhere classified (principal); I48.91 Unspecified atrial fibrillation; J44.9 Chronic obstructive pulmonary disease, unspecified; Z88.0 Allergy status to penicillin; Z79.01 Long term (current) use of anticoagulants; Z79.2 Long term (current) use of antibiotics; Z85.01 Personal history of malignant neoplasm of esophagus; Z86.79 Personal history of other diseases of the circulatory system; Z98.890 Other specified postprocedural states; Z79.899 Other long term (current) drug therapy
CPT/HCPCS: 76604; J3490

== ENCOUNTER 2018-08-17 08:28 | Day surgery (SDC) | payer MEDICARE, OTHER ==
[~2018-08-17] VITALS: Ht 152.4 cm; Wt 46.3 kg
[~2018-08-17 08:28] MED LIST changes: +LIDOcaine 1% 30ml preserv. free vial SQ STA
[2018-08-17 09:20] VITALS: BP 84/49
== END 2018-08-17 09:55 | disposition home or self-care (01) ==
LOC: SSTAY O 08:28
PROVIDERS: ATTEND Radiology Diagnostic Radiology
DX: J90 Pleural effusion, not elsewhere classified (principal); I48.91 Unspecified atrial fibrillation; J43.9 Emphysema, unspecified; Z79.01 Long term (current) use of anticoagulants; Z79.2 Long term (current) use of antibiotics; Z85.01 Personal history of malignant neoplasm of esophagus; Z88.0 Allergy status to penicillin; Z87.891 Personal history of nicotine dependence; Z90.49 Acquired absence of other specified parts of digestive tract; Z87.2 Personal history of diseases of the skin and subcutaneous tissue; Z79.899 Other long term (current) drug therapy; Z98.890 Other specified postprocedural states
CPT/HCPCS: 76604; J3490

== ENCOUNTER 2018-09-05 08:40 | Day surgery (SDC) | payer MEDICARE, OTHER ==
[~2018-09-05] VITALS: Ht 152.4 cm; Wt 46.0 kg
[~2018-09-05 08:40] MED LIST changes: -LIDOcaine 1% 30ml preserv. free vial SQ STA
[2018-09-05] MEDS ORDERED: LIDOcaine 1% 30ml preserv. free vial SQ ONE (09:00)
[2018-09-05 09:17] VITALS: BP 112/59
[2018-09-05 09:20] VITALS: BP 100/50
[2018-09-05 09:30] VITALS: BP 100/43
[2018-09-05 09:45] VITALS: BP 97/47
== END 2018-09-05 10:15 | disposition home or self-care (01) ==
LOC: SSTAY O 08:40
PROVIDERS: ATTEND Radiology Vascular & Interventional Radiology
DX: J90 Pleural effusion, not elsewhere classified (principal); I48.91 Unspecified atrial fibrillation; J43.9 Emphysema, unspecified; Z85.01 Personal history of malignant neoplasm of esophagus; Z79.01 Long term (current) use of anticoagulants; Z88.0 Allergy status to penicillin; Z88.2 Allergy status to sulfonamides; Z87.891 Personal history of nicotine dependence; Z87.2 Personal history of diseases of the skin and subcutaneous tissue; Z79.899 Other long term (current) drug therapy; Z98.890 Other specified postprocedural states
CPT/HCPCS: 76604; J3490

== ENCOUNTER 2018-10-15 08:26 | Day surgery (SDC) | payer MEDICARE, OTHER ==
[~2018-10-15] VITALS: Ht 152.4 cm; Wt 44.3 kg
[2018-10-15] MEDS ORDERED: LIDOcaine 1% 30ml preserv. free vial SQ STA (08:39)
[2018-10-15 08:49] VITALS: BP 134/51
[2018-10-15 09:45] VITALS: BP 83/58
[2018-10-15 09:48] VITALS: BP 80/55
[2018-10-15 09:53] VITALS: BP 82/51
[2018-10-15 10:00] VITALS: BP 81/56
[2018-10-15 10:15] VITALS: BP 80/55
[2018-10-15 10:46] LABS: TOTAL PROTEIN,BODY FLUID 4.1 G/DL
[2018-10-15 10:57] LABS: BF RBC COUNT 2000 /CU MM; BF WBC COUNT 1250 /CU MM (0-1000); BFAPPEAR CLOUDY; BFCOLOR YELLOW; BFVOLUME 46 ML; LYMPHOCYTES,BODY FLUID 18 %; MONOCYTES,BODY FLUID 5 %; NEUTROPHILS,BODY FLUID 77 %
== END 2018-10-15 10:25 | disposition home or self-care (01) ==
LOC: SSTAY O 08:26
PROVIDERS: ATTEND Radiology Diagnostic Radiology
DX: J90 Pleural effusion, not elsewhere classified (principal); J44.9 Chronic obstructive pulmonary disease, unspecified; F17.210 Nicotine dependence, cigarettes, uncomplicated; Z85.01 Personal history of malignant neoplasm of esophagus; Z79.899 Other long term (current) drug therapy; Z98.890 Other specified postprocedural states
CPT/HCPCS: 32555; 71045; 83615; 84157; 84478; 87070; 89051; J3490

== ENCOUNTER 2019-04-04 09:11 | Emergency (ER) | payer MEDICARE, OTHER ==
[~2019-04-04] VITALS: Ht 152.4 cm; Wt 39.3 kg
[~2019-04-04 09:11] MED LIST changes: -OMEP20CA10 PO; +OMEP20CA11 PO
[2019-04-04 11:07] LABS: BASOPHILS % (AUTO) 0.6 % (0-1); EOSINOPHILS # (AUTO) 0.1 X10'3 (0-0.9); EOSINOPHILS % (AUTO) 1.3 % (0-6); HEMOGLOBIN 12.3 g/dl (12.0-16.0); LYMPHOCYTES # (AUTO) 0.9 X10'3 (1.1-4.8); LYMPHOCYTES % (AUTO) 11.9 % (21-51); MEAN CORPUSCULAR HGB CONC 32.3 g/dL (33.0-36.5); MEAN CORPUSCULAR VOLUME 83.6 FL (78-98); MONOCYTES # (AUTO) 0.6 X10'3 (0-0.9); MONOCYTES % (AUTO) 7.9 % (2-12); NEUTROPHILS # (AUTO) 5.9 X10'3 (1.8-7.7); NEUTROPHILS % (AUTO) 78.3 % (42-75); PLATELET COUNT 232 X10'3 (140-440); RED BLOOD COUNT 4.55 X10'6 (4.20-5.60); RED CELL DISTRIBUTION WIDTH 18.1 % (11.5-14.5); WHITE BLOOD COUNT 7.6 X10'3 (4.5-11.0)
[2019-04-04 11:21] LABS: PARTIAL THROMBOPLASTIN TIME 23 SECONDS (22-32)
[2019-04-04 11:25] LABS: ALANINE AMINOTRANSFERASE 31 U/L (12-78); ALBUMIN 3.1 G/DL (3.4-5.0); ALBUMIN/GLOBULIN RATIO 0.6 (1.1-1.5); ALKALINE PHOSPHATASE 159 IU/L (46-116); ANION GAP 10 (8-16); ASPARTATE AMINO TRANSFERASE 27 U/L (10-37); BILIRUBIN,TOTAL 0.6 MG/DL (0.1-1.0); BLOOD UREA NITROGEN 38 MG/DL (7-18); BUN/CREATININE RATIO 46.3 (6.6-38.0); CALCIUM 9.1 MG/DL (8.5-10.1); CHLORIDE 106 MMOL/L (99-107); CREATININE 0.82 MG/DL (0.40-0.90); GLUCOSE 102 MG/DL (70-104); SODIUM 138 MMOL/L (135-145); TOTAL CARBON DIOXIDE 21.8 MMOL/L (24-32); TOTAL PROTEIN 8.3 G/DL (6.4-8.2); eGFR 69 ML/MIN
[2019-04-04 11:32] LABS: POTASSIUM 5.1 MMOL/L (3.5-5.1)
[2019-04-04 12:05] VITALS: BP 94/58
[2019-04-04] MEDS ORDERED: LEVO500T89 PO (12:14)
== END 2019-04-04 12:37 | disposition home or self-care (01) ==
LOC: ER 09:11
DX: T85.638A Leakage of other specified internal prosthetic devices, implants and grafts, initial encounter (principal); J90 Pleural effusion, not elsewhere classified; L03.313 Cellulitis of chest wall; R79.1 Abnormal coagulation profile; I48.91 Unspecified atrial fibrillation; E78.00 Pure hypercholesterolemia, unspecified; Z88.0 Allergy status to penicillin; Z88.2 Allergy status to sulfonamides; Z79.2 Long term (current) use of antibiotics; Z79.899 Other long term (current) drug therapy; Z85.9 Personal history of malignant neoplasm, unspecified; Z86.79 Personal history of other diseases of the circulatory system; Z87.01 Personal history of pneumonia (recurrent); Z98.890 Other specified postprocedural states; Y83.8 Other surgical procedures as the cause of abnormal reaction of the patient, or of later complication, without mention of misadventure at the time of the procedure; Y92.89 Other specified places as the place of occurrence of the external cause
CPT/HCPCS: 36415; 71046; 80053; 83735; 84145; 85025; 85610; 85730; 99285

== ENCOUNTER 2019-04-19 08:16 | Day surgery (SDC) | payer MEDICARE, OTHER ==
[~2019-04-19] VITALS: Ht 152.4 cm; Wt 39.2 kg
[~2019-04-19 08:16] MED LIST changes: +LIDOcaine 1%/PF 5ML 10 MG/ML VIAL ONE
[2019-04-19] MEDS ORDERED: normal saline 1000ml 1,000 ML IV PRN (08:35)
[2019-04-19 08:45] VITALS: BP 85/44
[2019-04-19 10:30] VITALS: BP 88/40
== END 2019-04-19 10:32 | disposition home or self-care (01) ==
LOC: SSTAY O 08:16
PROVIDERS: ATTEND Radiology Diagnostic Radiology
DX: Z46.82 Encounter for fitting and adjustment of non-vascular catheter (principal); I48.91 Unspecified atrial fibrillation; Z85.01 Personal history of malignant neoplasm of esophagus; Z88.0 Allergy status to penicillin; Z79.899 Other long term (current) drug therapy; Z88.2 Allergy status to sulfonamides
CPT/HCPCS: 32552; J7030

== ENCOUNTER 2022-03-16 08:54 | Emergency (ER) | payer MEDICARE, OTHER ==
[~2022-03-16] VITALS: Ht 152.4 cm; Wt 34.5 kg
[~2022-03-16 08:54] MED LIST changes: -APIX5TAB3 PO; -LIDOcaine 1%/PF 5ML 10 MG/ML VIAL ONE; +LISI2.5T14 PO; -LISI2.5T2 PO; -OMEP20CA11 PO; +OMEP20CA15 PO; +calcium chloride 100 MG/1 ML inj IV ONE; +epiNEPHrine 0.1mg/ml 10ml syringe ONE; +etomidate 2mg/ml inj. ONE; +rocuronium 10mg/ml inj IV ONE; +sodium bicarbonate (8.4%) 1 mEq/ml syringe ONE
[2022-03-16] MEDS ORDERED: azithromycin/NS 500mg/250ml 250 ML IV ONE (09:25)
[2022-03-16] MEDS ORDERED: CefTRIAXone 2gm/NS 100ml IVPB 100 ML IV ONE (09:25)
[2022-03-16 10:01] LABS: BASOPHILS % (AUTO) 0.4 % (0-1); EOSINOPHILS % (AUTO) 0.2 % (0-6); HEMATOCRIT 47.6 % (35.0-45.0); HEMOGLOBIN 15.2 g/dl (12.0-16.0); LYMPHOCYTES # (AUTO) 0.9 X10'3 (1.1-4.8); LYMPHOCYTES % (AUTO) 10.9 % (21-51); MEAN CORPUSCULAR HEMOGLOBIN 30.1 PG (27.0-31.0); MEAN CORPUSCULAR HGB CONC 31.8 g/dL (33.0-36.5); MEAN CORPUSCULAR VOLUME 94.6 FL (78-98); MEAN PLATELET VOLUME 9.4 FL (7.4-10.4); MONOCYTES # (AUTO) 0.6 X10'3 (0-0.9); MONOCYTES % (AUTO) 7.6 % (2-12); NEUTROPHILS # (AUTO) 6.4 X10'3 (1.8-7.7); NEUTROPHILS % (AUTO) 80.9 % (42-75); PLATELET COUNT 162 X10'3 (140-440); RED BLOOD COUNT 5.04 X10'6 (4.20-5.60); RED CELL DISTRIBUTION WIDTH 18.7 % (11.5-14.5); WHITE BLOOD COUNT 7.9 X10'3 (4.5-11.0)
[2022-03-16] MEDS ORDERED: furosemide 10 MG/1 ML 10ml inj IV ONE (10:40)
[2022-03-16 10:51] LABS: ALANINE AMINOTRANSFERASE 23 U/L (12-78); ALBUMIN 2.5 G/DL (3.4-5.0); ALBUMIN/GLOBULIN RATIO 0.6 (1.1-1.5); ALKALINE PHOSPHATASE 114 IU/L (46-116); ANION GAP 10 (8-16); ASPARTATE AMINO TRANSFERASE 37 U/L (10-37); BILIRUBIN,TOTAL 1.1 MG/DL (0.1-1.0); BLOOD UREA NITROGEN 53 MG/DL (7-18); BUN/CREATININE RATIO 42.7 (6.6-38.0); CALCIUM 8.6 MG/DL (8.5-10.1); CHLORIDE 106 MMOL/L (99-107); CREATININE 1.24 MG/DL (0.40-0.90); GLUCOSE 111 MG/DL (70-104); SODIUM 137 MMOL/L (135-145); TOTAL PROTEIN 6.9 G/DL (6.4-8.2); eGFR 43 ML/MIN
--- NOTE | 2022-03-16 11:31 | NUR ---
Patient called nurse to room to discuss not wanting to stay for medical treatment.
--- NOTE | 2022-03-16 12:00 | NUR ---
Patient up to bedside commode with husbands help.
[2022-03-16] MEDS ORDERED: albuterol 2.5 MG/3 ML nebule CONTNEB PRN (13:00)
--- NOTE | 2022-03-16 13:25 | NUR ---
Nurse called to bedside by who stated "something is just not right". Nurse found patient in bed, NC still in place, patient slumped to her right side. At this time patient began stating that she was urinating in the bed and seemed anxious but unable to hold her head up. began raising his voice and stated "just unhook her from everything, I am going to take her home" to which nurse stated that she is in no condition to safely go home. 's response was "She'll just do this at home, at least then I can take care of her myself". Moments later patient became completely unresponsive, Juancarlos IRIZARRY called to the bedside, NPA was placed by MD Lamar as patient couldn't adequately maintain her airway, venturi mask placed, doctor made decision to intubate at [id number].
[2022-03-16] MEDS ORDERED: naloxone 0.4 mg/ml inj ONE (13:28)
[2022-03-16] MEDS ORDERED: naloxone 0.4 mg/ml inj IV ONE ×2 (13:30→13:35)
[2022-03-16] MEDS ORDERED: LORazepam 2 mg/ml vial ONE (13:31)
[2022-03-16 13:39] VITALS: BP 63/29
[2022-03-16] MEDS ORDERED: midazolam 100mg in NS 100ml 100 ML IV PRN (13:45)
[2022-03-16] MEDS ORDERED: FENTANYL-0.9 % NACL/PF 100 ML IV PRN (13:45)
[2022-03-16] MEDS ORDERED: NORepinephrine inj. 32 MG in normal saline 250ml IV soln 218 ML IV SCH (13:45)
[2022-03-16] MEDS ORDERED: NORepinephrine 8mg/ 250ml NS 250 ML IV SCH (14:00)
--- NOTE | 2022-03-16 17:07 | NUR ---
PATIENTS [employer] COLLECTED AND PLACED IN ADMITTING [facility] FOR [employer] ARCHITECT FROM .
--- NOTE | 2022-03-16 17:19 | NUR ---
Called and left message with regarding home decision for patient.
--- NOTE | 2022-03-16 20:31 | NUR ---
have repeatedly called [facility] to request a [facility] to send his to no avail. patient currently is waiting to be transported and is post mortem 6+ hours
--- NOTE | 2022-03-16 20:34 | NUR ---
[employer]er Gutierrez advised to call [facility] post mortem.
== END 2022-03-16 20:45 ==
LOC: ER 08:55
DX: J18.9 Pneumonia, unspecified organism (principal); Z20.822 Contact with and (suspected) exposure to COVID-19; A41.9 Sepsis, unspecified organism; R62.50 Unspecified lack of expected normal physiological development in childhood; I50.9 Heart failure, unspecified; E87.6 Hypokalemia; J44.1 Chronic obstructive pulmonary disease with (acute) exacerbation; I48.91 Unspecified atrial fibrillation; E78.00 Pure hypercholesterolemia, unspecified; Z87.01 Personal history of pneumonia (recurrent); Z85.9 Personal history of malignant neoplasm, unspecified; Z98.890 Other specified postprocedural states; Z88.0 Allergy status to penicillin; Z88.2 Allergy status to sulfonamides; Z79.899 Other long term (current) drug therapy
CPT/HCPCS: 31500; 36415; 71045; 80053; 83605; 83880; 84484; 85025; 87040; 87635; 92950; 93005; 96365; 96368; 96375; 99291; 99292; C9803; J0171; J0456; J0696; J1940; J2310; J3490; J7030; 94760; J2060